=== PATIENT | female | born 1970 | race Caucasian/White ===

== ENCOUNTER 2021-06-17 16:16 | Outpatient (CLI) | payer BC, SELFPAY ==
--- NOTE | 2021-06-17 16:25 | XR_ITS ---
WS: [id number] LUMBAR SPINE: 3 VIEWS TECHNIQUE: AP, lateral and L5-S1 spot. HISTORY: lOW BACK PAIN, RIGHT-SIDED SCIATICA COMPARISON: 05/05/2019 Lumbar vertebra are normally aligned. Minimal narrowing of the disc spaces. Small endplate osteophytes and mild facet joint arthritis at L4 -5 and L5-S1. Pedicles are all identified. SI joints are symmetric bilaterally. No soft tissue abnormalities. Numerous calcifications in the RIGHT upper quadrant secondary to known cholelithiasis. XR/XR lumbar spine 2-3V* [id number] IMPRESSION: 1. Mild lumbar spondylosis. No fracture. 2. Cholelithiasis.
== END 2021-06-17 16:17 | disposition home or self-care (01) ==
PROVIDERS: PCP Family Medicine; Visit Provider Family Medicine
DX: M54.41 Lumbago with sciatica, right side (principal); G89.29 Other chronic pain; K80.20 Calculus of gallbladder without cholecystitis without obstruction; M47.816 Spondylosis without myelopathy or radiculopathy, lumbar region
CPT/HCPCS: 72100

== ENCOUNTER 2021-08-03 16:57 | Inpatient (IN) | payer BC, SELFPAY ==
[2021-08-03 17:06] VITALS: BP 175/75; PULSE 74; RESP 15; TEMP 36.8; O2SAT 99; BMI 38.9
--- NOTE | 2021-08-03 17:26 | W.ED.ABDPA2 ---
Documented by User: Jonathan Villavicencio DO 08/04/21 07:48 HPI - Abdominal Pain General: Chief Complaint: Abdominal Pain Stated Complaint: whole side hurting, hurts to breath, sit down Time Seen by Provider: 08/03/21 17:25 History of Present Illness: HPI narrative: 50 year old female presents to ER with left lower quadrant abdominal pain and progressive worsening over the last 4 days. She has had a large single bloody bowel movement today. She has severe abdominal pain. She has had diverticulitis in the past as well as multiple previous abdominal surgeries. Denies dysuria urgency or frequency. MD elicited complaint: abdominal pain Pertinent past history: diverticulitis Onset (ago): day(s) (10) Pain Consistency: constant Location: LLQ Severity: severe Quality: cramping and stabbing Exacerbating factors: eating and movement Relieving factors: rest Associated Symptoms: Reports bloating, change in bowel habits, change in stool character, chills, GI cramping, diarrhea, hematochezia, loose stools, nausea and poor appetite; Denies anorexia, belching, coffee ground emesis, constipation, dyspepsia, dysuria, excessive flatus, fever(s), heartburn, hematuria, hematemesis, fecal incontinence, melena, syncope and vomiting Review of Systems Const: Reports: chills; Denies: fever(s) ENMT: Denies: throat pain, ear or mastoid pain, nasal discharge or nasal congestion Card: Denies: syncope Resp: Denies: dyspnea, productive cough or non-productive cough GI: Reports: nausea, diarrhea, bloating, GI cramping, change in bowel habits, change in stool character and hematochezia; Denies: vomiting, hematemesis, coffee ground emesis, heartburn, constipation, belching, excessive flatus, fecal incontinence or melena : Denies: dysuria or hematuria Skin/Breast: Denies: rash or pruritus PFSH ED PFSH: Medical History Diverticulitis Diverticulosis Surgical History H/O tubal ligation History of hysterectomy Previous section Social History (Reviewed 08/04/21 @ 07:47 by TAWANDA Zamora Smoking and tobacco status: never smoked Physical Exam Const: COMMON NORMALS: no acute distress GENERAL APPEARANCE: cooperative and comfortable ORIENTATION/CONSCIOUSNESS: Yes awake, Yes oriented to person, Yes oriented to place and Yes oriented to time HENMT: COMMON NORMALS: normocephalic, atraumatic and hearing grossly normal bilaterally HEAD & SCALP: normocephalic and atraumatic Neck/C-Spine: COMMON NORMALS: no JVD Resp: COMMON NORMALS: normal respiratory effort, No retractions, No use of accessory muscles and clear to auscultation bilaterally AUSCULTATION: clear to auscultation bilaterally Cardio: COMMON NORMALS: no JVD, regular rate, regular rhythm and No murmurs present (Cardio) RATE: regular rate RHYTHM: regular rhythm GI: COMMON NORMALS: No hepatosplenomegaly present PALPATION: Yes Tenderness to palpation present (GI) Details: LLQ, Yes Guarding due to palpation present (GI) in the LLQ and Yes No hepatosplenomegaly present Extremity: COMMON NORMALS: normal to inspection, capillary refill normal, no clubbing, cyanosis or edema, no calf tenderness and no pedal edema Neuro: SENSORIUM/ORIENTATION: Yes oriented to person, Yes oriented to place and Yes oriented to time Skin: COMMON NORMALS: no rashes or lesions noted GENERAL SKIN EXAM: no rashes or lesions noted Course Vital Signs: Vital signs: Vital Signs Temperature 97.8 F 08/05/21 16:12 Pulse Rate 51 L 08/05/21 16:12 Respiratory Rate 16 08/05/21 16:12 Blood Pressure 170/82 08/05/21 16:12 Pulse Oximetry 97 08/05/21 16:12 MDM - Abdominal Pain MDM Narrative: Medical decision making narrative: Over to Dr. Roberts changes shift see his notes for final diagnosis and disposition. Labs and imaging are pending. Lab Data: Labs: Lab Results 08/03/21 08/03/21 08/03/21 18:00 18:13 18:13 WBC 12.2 10^3/uL H 10 ^3/uL (4.0-10.0) RBC 4.65 10^6/uL 10^6 /uL (4.1-5.3) Hgb 13.5 g/dL g/dL (11.5-15.3) Hct 42.5 % % (37.0-47.0) MCV 91.4 fl fl (81-99) MCH 29.0 pg pg (28.0-34.0) MCHC 31.8 g/dL g/dL (30.0-36.0) RDW 12.2 % % (12.1-15.1) Plt Count 378 10^3/cmm 10^3 /cmm (130-400) MPV 10.0 fL fL (7.4-10.4) Neut % (Auto) 68.8 % % Lymph % (Auto) 22.0 % % [place] % (Auto) 7.3 % % Eos % (Auto) 1.3 % % Baso % (Auto) 0.3 % % Neut # (Auto) 8.37 10^3/uL H 10 ^3/uL (1.8-7.7) Lymph # (Auto) 2.7 10^3/uL 10^3/ uL (0.8-4.8) [place] # (Auto) 0.9 10^3/uL 10^3/ uL (0.2-0.9) Eos # (Auto) 0.2 10^3/uL 10^3/ uL (0.0-0.8) Baso # (Auto) 0.0 10^3/uL 10^3/ uL (0.0-0.1) Nucleated RBC % (a uto) 0 % % Nucleated RBCs # 0.0 /100WBC /100W BC Sodium 140 mmol/L mmol/L (136-145) Potassium 4.3 mmol/L mmol/L (3.5-5.1) Chloride 101 mmol/L mmol/L (98-107) Carbon Dioxide 24 mmol/L mmol/L (22-29) Anion Gap 19.3 H (5-19) BUN 9 mg/dL mg/dL (6-20) Creatinine 0.5 mg/dL mg/dL (0.5-0.9) GFR Calculation 131.7 mL/min H mL /min (90-130) Glucose 77 mg/dL mg/dL (65-115) Calculated Osmolal ity 287 mOsm/kg mOsm/ kg (285-295) Calcium 10.0 mg/dL mg/dL (8.5-10.5) Iron TIBC % Saturation Unsat Iron Binding Total Bilirubin 0.3 mg/dL mg/dL (0.15-1.2) AST 14 U/L U/L (0-32) ALT 12 U/L U/L (0-33) Alkaline Phosphata se 101 IU/L IU/L (35-105) Total Protein 7.6 g/dL g/dL (6.6-8.7) Albumin 4.1 g/dL g/dL (3.5-5.2) Globulin 3.5 g/dL g/dL (1.3-4.6) Lipase 27 U/L U/L (13-60) TSH Urine Color Straw (Yellow) Urine Appearance Clear (CLEAR) Urine pH 5 (5-7) Ur Specific Gravit y 1.015 (1.005-1.030) Urine Protein Neg (Negative) Urine Glucose (UA) Norm (Normal) Urine Ketones Negative (Negative) Urine Blood Neg (Negative) Urine Nitrate Negative (Negative) Urine Bilirubin Neg (Negative) Urine Urobilinogen Norm mg/dL mg/dL (Negative) Ur Leukocyte Rose ase Negative (Negative) 08/03/21 08/03/21 18:13 18:13 WBC RBC Hgb Hct MCV MCH MCHC RDW Plt Count MPV Neut % (Auto) Lymph % (Auto) [place] % (Auto) Eos % (Auto) Baso % (Auto) Neut # (Auto) Lymph # (Auto) [place] # (Auto) Eos # (Auto) Baso # (Auto) Nucleated RBC % (a uto) Nucleated RBCs # Sodium Potassium Chloride Carbon Dioxide Anion Gap BUN Creatinine GFR Calculation Glucose Calculated Osmolal ity Calcium Iron Cancelled 25 ug/dL L ug/dL (37-145) TIBC Cancelled 329 mcg/dl mcg/dl % Saturation Cancelled 7.5 % L % (20-50) Unsat Iron Binding Cancelled 304 ug/dL ug/dL (112-347) Total Bilirubin AST ALT Alkaline Phosphata se Total Protein Albumin Globulin Lipase TSH 2.47 uIU/mL uIU/m L (0.27-4.20) Urine Color Urine Appearance Urine pH Ur Specific Gravit y Urine Protein Urine Glucose (UA) Urine Ketones Urine Blood Urine Nitrate Urine Bilirubin Urine Urobilinogen Ur Leukocyte Rose ase Discharge Plan Discharge Patient Disposition: Placed in Observation Admit Provider: Karla Smith Clinical Impression: Diverticulitis Discharge Diet: Advance as tolerated, Soft Mechanical and Full LIquid Discharge Activity: Resume usual activity Sign Out Sign Out Data: Patient Sign Out occurred on 08/03/21 at 18:14. Patient's care was discussed, and care was transferred from to Alvaro Reynolds MD. Post-Handoff Eval: See MDM Coding Level of Care Code ED Gyn for Chg Fwd Exam Comprehensive Documented by User: Alvaro Reynolds MD 08/09/21 20:47 HPI - Abdominal Pain General: Chief Complaint: Abdominal Pain Stated Complaint: whole side hurting, hurts to breath, sit down Time Seen by Provider: 08/03/21 17:25 PFSH ED PFSH: Medical History Diverticulitis Diverticulosis Surgical History H/O tubal ligation History of hysterectomy Previous section Social History Smoking and tobacco status: never smoked Course Vital Signs: Vital signs: Vital Signs Temperature 97.8 F 08/05/21 16:12 Pulse Rate 51 L 08/05/21 16:12 Respiratory Rate 16 08/05/21 16:12 Blood Pressure 170/82 08/05/21 16:12 Pulse Oximetry 97 08/05/21 16:12 MDM - Abdominal Pain MDM Narrative: Medical decision making narrative: Patient care handoff received from Dr. Villavicencio pending completion of laboratory evaluation and CT imaging. Laboratory studies notable for leukocytosis, CT images notable for diverticulitis. Patient reports 3-day history of compliance with outpatient antibiotic regimen however continues to worsen with increased pain. Therefore, inpatient observation for IV antibiotics and symptom control reasonable. Case discussed with patient including results of ED evaluation and possible disposition options. Hospitalist service contacted and agreed admit the patient. Alvaro Reynolds MD Emergency Medicine Lab Data: Labs: Lab Results 08/03/21 08/03/21 08/03/21 18:00 18:13 18:13 WBC 12.2 10^3/uL H 10 ^3/uL (4.0-10.0) RBC 4.65 10^6/uL 10^6 /uL (4.1-5.3) Hgb 13.5 g/dL g/dL (11.5-15.3) Hct 42.5 % % (37.0-47.0) MCV 91.4 fl fl (81-99) MCH 29.0 pg pg (28.0-34.0) MCHC 31.8 g/dL g/dL (30.0-36.0) RDW 12.2 % % (12.1-15.1) Plt Count 378 10^3/cmm 10^3 /cmm (130-400) MPV 10.0 fL fL (7.4-10.4) Neut % (Auto) 68.8 % % Lymph % (Auto) 22.0 % % [place] % (Auto) 7.3 % % Eos % (Auto) 1.3 % % Baso % (Auto) 0.3 % % Neut # (Auto) 8.37 10^3/uL H 10 ^3/uL (1.8-7.7) Lymph # (Auto) 2.7 10^3/uL 10^3/ uL (0.8-4.8) [place] # (Auto) 0.9 10^3/uL 10^3/ uL (0.2-0.9) Eos # (Auto) 0.2 10^3/uL 10^3/ uL (0.0-0.8) Baso # (Auto) 0.0 10^3/uL 10^3/ uL (0.0-0.1) Nucleated RBC % (a uto) 0 % % Nucleated RBCs # 0.0 /100WBC /100W BC Sodium 140 mmol/L mmol/L (136-145) Potassium 4.3 mmol/L mmol/L (3.5-5.1) Chloride 101 mmol/L mmol/L (98-107) Carbon Dioxide 24 mmol/L mmol/L (22-29) Anion Gap 19.3 H (5-19) BUN 9 mg/dL mg/dL (6-20) Creatinine 0.5 mg/dL mg/dL (0.5-0.9) GFR Calculation 131.7 mL/min H mL /min (90-130) Glucose 77 mg/dL mg/dL (65-115) Calculated Osmolal ity 287 mOsm/kg mOsm/ kg (285-295) Calcium 10.0 mg/dL mg/dL (8.5-10.5) Iron TIBC % Saturation Unsat Iron Binding Total Bilirubin 0.3 mg/dL mg/dL (0.15-1.2) AST 14 U/L U/L (0-32) ALT 12 U/L U/L (0-33) Alkaline Phosphata se 101 IU/L IU/L (35-105) Total Protein 7.6 g/dL g/dL (6.6-8.7) Albumin 4.1 g/dL g/dL (3.5-5.2) Globulin 3.5 g/dL g/dL (1.3-4.6) Lipase 27 U/L U/L (13-60) TSH Urine Color Straw (Yellow) Urine Appearance Clear (CLEAR) Urine pH 5 (5-7) Ur Specific Gravit y 1.015 (1.005-1.030) Urine Protein Neg (Negative) Urine Glucose (UA) Norm (Normal) Urine Ketones Negative (Negative) Urine Blood Neg (Negative) Urine Nitrate Negative (Negative) Urine Bilirubin Neg (Negative) Urine Urobilinogen Norm mg/dL mg/dL (Negative) Ur Leukocyte Rose ase Negative (Negative) 08/03/21 08/03/21 18:13 18:13 WBC RBC Hgb Hct MCV MCH MCHC RDW Plt Count MPV Neut % (Auto) Lymph % (Auto) [place] % (Auto) Eos % (Auto) Baso % (Auto) Neut # (Auto) Lymph # (Auto) [place] # (Auto) Eos # (Auto) Baso # (Auto) Nucleated RBC % (a uto) Nucleated RBCs # Sodium Potassium Chloride Carbon Dioxide Anion Gap BUN Creatinine GFR Calculation Glucose Calculated Osmolal ity Calcium Iron Cancelled 25 ug/dL L ug/dL (37-145) TIBC Cancelled 329 mcg/dl mcg/dl % Saturation Cancelled 7.5 % L % (20-50) Unsat Iron Binding Cancelled 304 ug/dL ug/dL (112-347) Total Bilirubin AST ALT Alkaline Phosphata se Total Protein Albumin Globulin Lipase TSH 2.47 uIU/mL uIU/m L (0.27-4.20) Urine Color Urine Appearance Urine pH Ur Specific Gravit y Urine Protein Urine Glucose (UA) Urine Ketones Urine Blood Urine Nitrate Urine Bilirubin Urine Urobilinogen Ur Leukocyte Rose ase Discharge Plan Discharge Patient Disposition: Placed in Observation Admit Provider: Karla Smith Clinical Impression: Diverticulitis Discharge Diet: Advance as tolerated, Soft Mechanical and Full LIquid Discharge Activity: Resume usual activity Sign Out Sign Out Data: Patient Sign Out occurred on 08/03/21 at 18:14. Patient's care was discussed, and care was transferred from to Alvaro Reynolds MD. Post-Handoff Eval: See MDM Coding Level of Care Code ED Gyn for Chg Fwd Exam Comprehensive
--- NOTE | 2021-08-03 17:28 | ECG_ITS ---
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 Measurements Intervals [place] Rate: 72 P: 64 [place]: 139 QRS: 60 QRSD: 106 T: 52 QT: 390 QTc: 430 Interpretive Statements SINUS RHYTHM INCOMPLETE RIGHT BUNDLE BRANCH BLOCK [90+ ms QRS DURATION, TERMINAL R IN V1/V2, 40+ ms S IN I/aVL/V4/V5/V6] No previous ECG available for comparison Electronically Signed On 08-04-2021 4:59:54 PRODUCTION MATERIAL COORDINATOR by Sheron Loya M.D. [email or web address]
--- NOTE | 2021-08-03 18:05 | CTR_ITS ---
PROCEDURE INFORMATION: Exam: CT Abdomen And Pelvis With Contrast Exam date and time: 08/03/2021 6:05 PM Age: 50 years old Clinical indication: Abdominal pain; Localized; Left lower quadrant (llq); Prior surgery; Surgery type: Tubal, hyst, ; Additional info: Abd pain TECHNIQUE: Imaging protocol: Computed tomography of the abdomen and pelvis with contrast. Radiation optimization: All CT scans at this facility use at least one of these dose optimization techniques: automated exposure control; mA and/or kV adjustment per patient size (includes targeted exams where dose is matched to clinical indication); or iterative reconstruction. Contrast material: OMNI 300; Contrast volume: 95 ml; Contrast route: INTRAVENOUS (IV); COMPARISON: CT abdomen pelvis w con* [id number] 05/05/2019 7:52 PM RADIATION DOSE METRICS: Total DLP (mGy-cm): 1817.74 FINDINGS: Liver: Hepatic steatosis. Gallbladder and bile ducts: Cholelithiasis. Pancreas: Normal. No ductal dilation. Spleen: Normal. No splenomegaly. Adrenal glands: Normal. No mass. Kidneys and ureters: Normal. No hydronephrosis. Stomach and bowel: Distal descending colon wall thickening with surrounding edema about a diverticula consistent with diverticulitis. Appendix: No evidence of appendicitis. Intraperitoneal space: Unremarkable. No free air. No significant fluid collection. Vasculature: Unremarkable. No abdominal aortic aneurysm. Lymph nodes: Unremarkable. No enlarged lymph nodes. Urinary bladder: Unremarkable as visualized. Reproductive: Unremarkable as visualized. Bones/joints: Unremarkable. No acute fracture. Soft tissues: Unremarkable. CT/CT abdomen pelvis w con* [id number] IMPRESSION: 1. Distal descending colon diverticulitis, negative for abscess. 2. Hepatic steatosis. 3. Cholelithiasis.
[2021-08-03] MEDS: sodium chloride 0.9% 1,000 ML 999 ML IV (18:15)
[2021-08-03] MEDS: ondansetron 2 mg/ML SDV 2 mL 4 MG IVP (18:15)
[2021-08-03 18:16] VITALS: RESP 16
[2021-08-03] MEDS: morphine 4 mg/mL SDV 1 mL 6 MG IVP (18:16)
--- NOTE | 2021-08-03 18:19 | PC.NURSE ---
PT PLACED ON CONTINUOUS SPO2, NIBP, AND CM.
[2021-08-03 18:22] VITALS: BP 212/97; PULSE 69; RESP 21; O2SAT 100
[2021-08-03 18:27] LABS: Add Urine Microscopic? NO; Charge for UA Resulting for Rev
[2021-08-03 18:28] LABS: Basophils % 0.3 %; Eosinophils # 0.2 10^3/uL (0.0-0.8); Eosinophils % 1.3 %; Hematocrit 42.5 % (37.0-47.0); Hemoglobin 13.5 g/dL (11.5-15.3); Lymphocytes # 2.7 10^3/uL (0.8-4.8); Mean Corpuscular HGB Conc 31.8 g/dL (30.0-36.0); Mean Corpuscular Volume 91.4 fl (81-99); Monocytes # 0.9 10^3/uL (0.2-0.9); Monocytes % 7.3 %; Neutrophils # 8.37 10^3/uL (1.8-7.7); Neutrophils % 68.8 %; Nucleated Red Blood Cells % 0 %; Platelet Count 378 10^3/cmm (130-400); Red Blood Count 4.65 10^6/uL (4.1-5.3); Red Cell Distribution Width 12.2 % (12.1-15.1); White Blood Count 12.2 10^3/uL (4.0-10.0)
[2021-08-03 18:36] LABS: Bilirubin Urine Neg (Negative); Blood Urine Neg (Negative); Glucose Urine UA Norm (Normal); Ketones Urine Negative (Negative); Leukocyte Esterase Urine Negative (Negative); Nitrate Urine Negative (Negative); Protein Urine Neg (Negative); Specific Gravity, Urine 1.015 (1.005-1.030); Urine Appearance Clear (CLEAR); Urine Color Straw (Yellow); Urobilinogen Urine Norm (Negative); pH Urine 5 (5-7)
[2021-08-03] MEDS: iohexol 300 mg/mL 100 mL Btl IV (18:36)
[2021-08-03 18:53] LABS: Alanine Aminotransferase 12 U/L (0-33); Albumin Level 4.1 g/dL (3.5-5.2); Alkaline Phosphatase 101 IU/L (35-105); Aspartate Amino Transferase 14 U/L (0-32); Blood Urea Nitrogen 9 mg/dL (6-20); Carbon Dioxide 24 mmol/L (22-29); Chloride 101 mmol/L (98-107); Globulin 3.5 g/dL (1.3-4.6); Glomerular Filtration Rate 131.7 mL/min (90-130); Glucose 77 mg/dL (65-115); Lipase 27 U/L (13-60); Osmolality Calculated 287 mOsm/kg (285-295); Sodium 140 mmol/L (136-145); Total Bilirubin 0.3 mg/dL (0.15-1.2); Total Protein 7.6 g/dL (6.6-8.7)
[2021-08-03 18:55] LABS: Anion Gap 19.3 (5-19); Potassium 4.3 mmol/L (3.5-5.1)
--- NOTE | 2021-08-03 19:08 | PC.NURSE ---
report given to cristóbal larkin assumed care.
[2021-08-03] MEDS: ciprofloxacin 400 MG/200 ML PREMIX 200 MG IV (19:31)
[2021-08-03] MEDS: metroNIDAZOLE IV 500 MG/100 ML PREMIX 100 MG IV (20:35)
[2021-08-03 21:57] VITALS: BMI 38.6
[2021-08-03 22:16] VITALS: BP 157/79; PULSE 70; RESP 16; TEMP 36.8; O2SAT 97
--- NOTE | 2021-08-03 22:57 | PM.HP ---
Providers/Chief Complaint Admitting Physician: Karla Smith MD Primary Care Provider: Monica Belle DO Chief Complaint: whole side hurting, hurts to breath, sit down History of Present Illness Nita Lee is a 50 year old female presenting to the ER today with c.o lower abdominal pain, described as cramping to dull aching that was first noticed ~7-10 days ago. Reports pain mainly being in the LLQ, worsened with eating. Also with intermittent diarrhea and hematochezia, denies richardson cata. Poor po intake+. She was prescribed po Augmentin as outpatient which she has been taking without significant change in her symptoms. On CT scan today, noted to have diverticulitis. Review of Systems General: Reports: 10 or more systems reviewed and unremarkable except in HPI and below Const: Reports: chills; Denies: fever(s) or body aches Eyes: Denies: change in vision, blurry vision or photophobia ENMT: Reports: hoarseness; Denies: throat pain, enlarged tonsils, odynophagia or nasal congestion Card: Denies: chest pain, palpitations, irregular heart rhythm, edema, swelling of feet/ankles, lightheadedness, pre-syncope, dyspnea on exertion or orthopnea Resp: Denies: dyspnea, productive cough, non-productive cough, wheezing, stridor, pain on inspiration, change in phlegm color, hemoptysis or chest congestion GI: Reports: abdominal pain and nausea; Denies: vomiting, hematemesis, coffee ground emesis, dysphagia, heartburn, diarrhea, constipation, GI cramping, hematochezia or melena : Denies: flank pain, difficulty voiding, dysuria, urinary frequency, urinary urgency, urinary hesitancy or hematuria Musc: Denies: neck pain, back pain, extremity pain, joint swelling, joint warmth or deformity Neuro: Denies: headache(s), numbness in extremities, weakness in extremities, sensory changes, difficulty walking, frequent falls, dizziness, vertigo, behavioral changes, Slurred speech present or seizure-like activity Psych: Denies: anxiety, depression, suicidal ideation or homicidal ideation Endo: Denies: polyuria, polydipsia, tired all the time, cold intolerance or hot flashes Kevin/Lymph: Denies: easy bruising or easy bleeding Medications/Allergies Home Medications Medication Instructions Recorded Confirmed Last Taken Type No Known Home Medications 05/22/21 05/22/21 Unknown History Allergies Allergy/AdvReac Type Severity Reaction Status Date / Time No Known Allergies Allergy Verified 05/22/21 10:28 PFSH Acute PFSH: Medical History Diverticulitis Diverticulosis Surgical History H/O tubal ligation History of hysterectomy Previous section Social History Smoking and tobacco status: never smoked Vitals/I&O/Wt Last Vital Signs Temp 98.3 F 08/03/21 22:16 Pulse 70 08/03/21 22:16 Resp 16 08/03/21 22:16 BP 157/79 08/03/21 22:16 Pulse Ox 97 08/03/21 22:16 08/03/21 08/03/21 08/03/21 06:59 14:59 22:59 Intake Total 1300 / 1300 Balance 1300 / 1300 Weight last 48 hrs Weight 98.883 kg Weight 99.79 kg Physical Exam Narrative: EXAM NARRATIVE: General: No acute distress, AO x3 HEENT: PERRLA, pupils bilaterally equal and reactive, pallors not present Chest: Normal vesicular breath sounds, no added sounds, equal good air entry bilaterally CVS: S1-S2 regular, no murmurs, no tachycardia, no gallops, no rubs Abdomen: Soft, discomfort to palpation lower abdomen, no organomegaly, bowel sounds present Neuro: No focal deficits, no facial deformity, AO x3, power 5/5 in all limbs Data : 08/03/21 18:13 08/03/21 18:13 Other Labs: Radiology Impressions Abdomen/Pelvis CT 08/03/21 18:05 IMPRESSION: 1. Distal descending colon diverticulitis, negative for abscess. 2. Hepatic steatosis. 3. Cholelithiasis. Laboratory Results WBC 12.2 10^3/uL (4.0-10.0) H 08/03/21 18:13 RBC 4.65 10^6/uL (4.1-5.3) 08/03/21 18:13 Hgb 13.5 g/dL (11.5-15.3) 08/03/21 18:13 Hct 42.5 % (37.0-47.0) 08/03/21 18:13 MCV 91.4 fl (81-99) 08/03/21 18:13 MCH 29.0 pg (28.0-34.0) 08/03/21 18:13 MCHC 31.8 g/dL (30.0-36.0) 08/03/21 18:13 RDW 12.2 % (12.1-15.1) 08/03/21 18:13 Plt Count 378 10^3/cmm (130-400) 08/03/21 18:13 MPV 10.0 fL (7.4-10.4) 08/03/21 18:13 Neut % (Auto) 68.8 % 08/03/21 18:13 Lymph % (Auto) 22.0 % 08/03/21 18:13 [place] % (Auto) 7.3 % 08/03/21 18:13 Eos % (Auto) 1.3 % 08/03/21 18:13 Baso % (Auto) 0.3 % 08/03/21 18:13 Neut # (Auto) 8.37 10^3/uL (1.8-7.7) H 08/03/21 18:13 Lymph # (Auto) 2.7 10^3/uL (0.8-4.8) 08/03/21 18:13 [place] # (Auto) 0.9 10^3/uL (0.2-0.9) 08/03/21 18:13 Eos # (Auto) 0.2 10^3/uL (0.0-0.8) 08/03/21 18:13 Baso # (Auto) 0.0 10^3/uL (0.0-0.1) 08/03/21 18:13 Nucleated RBC % (auto) 0 % 08/03/21 18: Nucleated RBCs # 0.0 /100WBC 08/03/21 18:13 Sodium 140 mmol/L (136-145) 08/03/21 18:13 Potassium 4.3 mmol/L (3.5-5.1) 08/03/21 18:13 Chloride 101 mmol/L (98-107) 08/03/21 18:13 Carbon Dioxide 24 mmol/L (22-29) 08/03/21 18:13 Anion Gap 19.3 (5-19) H 08/03/21 18:13 BUN 9 mg/dL (6-20) 08/03/21 18:13 Creatinine 0.5 mg/dL (0.5-0.9) 08/03/21 18:13 GFR Calculation 131.7 mL/min (90-130) H 08/03/21 18:13 Glucose 77 mg/dL (65-115) 08/03/21 18:13 Calculated Osmolality 287 mOsm/kg (285-295) 08/03/21 18:13 Calcium 10.0 mg/dL (8.5-10.5) 08/03/21 18:13 Total Bilirubin 0.3 mg/dL (0.15-1.2) 08/03/21 18:13 AST 14 U/L (0-32) 08/03/21 18:13 ALT 12 U/L (0-33) 08/03/21 18:13 Alkaline Phosphatase 101 IU/L (35-105) 08/03/21 18:13 Total Protein 7.6 g/dL (6.6-8.7) 08/03/21 18:13 Albumin 4.1 g/dL (3.5-5.2) 08/03/21 18:13 Globulin 3.5 g/dL (1.3-4.6) 08/03/21 18:13 Lipase 27 U/L (13-60) 08/03/21 18:13 Urine Color Straw (Yellow) 08/03/21 18:00 Urine Appearance Clear (CLEAR) 08/03/21 18:00 Urine pH 5 (5-7) 08/03/21 18:00 Ur Specific [place] 1.015 (1.005-1.030) 08/03/21 18:00 Urine Protein Neg (Negative) 08/03/21 18:00 Urine Glucose (UA) Norm (Normal) 08/03/21 18:00 Urine Ketones Negative (Negative) 08/03/21 18:00 Urine Blood Neg (Negative) 08/03/21 18:00 Urine Nitrate Negative (Negative) 08/03/21 18: Urine Bilirubin Neg (Negative) 08/03/21 18:00 Urine Urobilinogen Norm mg/dL (Negative) 08/03/21 18:00 Ur Leukocyte Esterase Negative (Negative) 08/03/21 18:00 A&P Assessment and plan (1) Diverticulitis: Status: Acute Additional A&P Information Admit to med/surg in view of acute diverticulitis with hematochezia with failure of outpatient antibiotic treatment , poor po intake Start empiric iv piperacillin, tazobactam NPO for bowel rest IVF D5NS @ 75cc/hr stool for occult blood currently hemodynamically stable, Hb 13.5 Incidentally noted to have BP 212/97 upon admission, trended down to 150/79 without directed treatment, will monitor for now without addition of new medications. Attestations Medical Necessity Statement*: anticipate >2idnight admission for management of acute diverticulitis, having failed outpatient rx, need for iv abx and iv hydration Coding Level of Care Code Acute Fundraising Consultant for Leif Alva Diagnoses Diverticulitis K57.92
[2021-08-03] MEDS: ketorolac 30 mg/mL INJ 15 MG IVP (23:32)
[2021-08-03] MEDS: enoxaparin 40 mg/0.4 mL Syringe SUBCUT (23:32)
[2021-08-03] MEDS: dextrose 5%-sod chloride 0.9% 1,000 ML 75 ML IV (23:33)
[2021-08-03] MEDS: famotidine 20 mg/2 mL INJ IVP (23:33)
[2021-08-04] VITALS (7 sets, daily range): BP systolic 100–161; BP diastolic 52–87; PULSE 61–80; RESP 16–18; TEMP 36.6–36.9; O2SAT 93–98
[2021-08-04] MEDS: ketorolac 30 mg/mL INJ 15 MG IVP (07:55)
[2021-08-04] MEDS: piperacillin-tazobactam 3.375 GM in sodium chloride 0.9% (plus) 50 ML IV ×3 (07:55→23:26)
[2021-08-04] MEDS: famotidine 20 mg/2 mL INJ IVP ×2 (10:08→23:25)
[2021-08-04] MEDS: dextrose 5%-sod chloride 0.9% 1,000 ML 75 ML IV (11:31)
--- NOTE | 2021-08-04 14:59 | P.PN_ITS ---
Subjective Subjective: Interval history: Admitted overnight for diverticulitis. On examination today laying comfortably in bed. Family at bedside. Denies any nausea vomiting, headache. Has remained afebrile. Vitals/I&O/Wt Last Vital Signs Temp 97.9 F 08/04/21 11:35 Pulse 65 08/04/21 11:35 Resp 18 08/04/21 11:35 BP 115/67 08/04/21 11:35 Pulse Ox 95 08/04/21 11:35 08/03/21 08/04/21 08/04/21 22:59 06:59 14:59 Intake Total 1300 / 1300 0 / 1300 897.5 / 897.5 Output Total 100 / 100 Balance 1300 / 1300 0 / 1300 797.5 / 797.5 Weight last 48 hrs Weight 98.883 kg Weight 99.79 kg Physical Exam Narrative: EXAM NARRATIVE: General: No acute distress, AO x3 HEENT: PERRLA, pupils bilaterally equal and reactive, pallors not present Chest: Normal vesicular breath sounds, no added sounds, equal good air entry bilaterally CVS: S1-S2 regular, no murmurs, no tachycardia, no gallops, no rubs Abdomen: Soft, discomfort to palpation lower abdomen, no organomegaly, bowel sounds present Neuro: No focal deficits, no facial deformity, AO x3, power 5/5 in all limbs Data : 08/03/21 18:13 08/03/21 18:13 A&P Assessment and plan (1) Diverticulitis: Check stool studies to rule out C. difficile or infectious cause. Continue with empiric Zosyn for now. NPO. Will advance gradually to clear liquid diet for the next 24 hours. Continue with D5 NS at 75 cc/h. Status: Acute Additional A&P Information High blood pressure: No documented history of hypertension. Goal blood pressure less than 140/90 mmHg. We will continue to monitor and if needed will start on antihypertensives. Check HbA1c, lipid panel, TSH, iron panel. Full code. Lovenox for DVT prophylaxis. Famotidine for daily prophylaxis. Attestations Medical Necessity Statement*: Requires further hospitalization for diverticulitis, poor oral intake, failure of outpatient therapy. Time Spent in Patient Care: Greater than 35 minutes (>than 50% of time spent in counselling and/or direct pt care on unit) . Coding Level of Care Code Acute Care Transition Manager for Chg Fwd Diagnoses Diverticulitis K57.92
[2021-08-04] MEDS: morphine 4 mg/mL SDV 1 mL 2 MG IVP (15:12)
[2021-08-04 15:27] LABS: Iron 25 ug/dL (37-145); Percent Saturation 7.5 % (20-50); Thyroid Stimulating Hormone 2.47 uIU/mL (0.27-4.20); Total Iron Binding Capacity 329 mcg/dl; Unsaturated Iron Binding 304 ug/dL (112-347)
--- NOTE | 2021-08-04 17:08 | PC.NURSE ---
Patient asking when she will see the Doctor today. Dr Bae notified.
[2021-08-05] VITALS: BP 140/80; PULSE 60; RESP 18; TEMP 36.7; O2SAT 93
[2021-08-05] MEDS: dextrose 5%-sod chloride 0.9% 1,000 ML 75 ML IV (00:17)
[2021-08-05] MEDS: ketorolac 30 mg/mL INJ 15 MG IVP (00:25)
[2021-08-05] MEDS: acetaminophen 325 mg Tablet 650 MG PO (00:25)
[2021-08-05 05:51] LABS: Basophils % 0.4 %; Eosinophils # 0.2 10^3/uL (0.0-0.8); Eosinophils % 2.4 %; Hematocrit 32.8 % (37.0-47.0); Hemoglobin 10.3 g/dL (11.5-15.3); Lymphocytes # 3.2 10^3/uL (0.8-4.8); Lymphocytes % 42.9 %; Mean Corpuscular HGB Conc 31.4 g/dL (30.0-36.0); Mean Corpuscular Hemoglobin 29.2 pg (28.0-34.0); Mean Corpuscular Volume 92.9 fl (81-99); Mean Platelet Volume 9.5 fL (7.4-10.4); Monocytes # 0.5 10^3/uL (0.2-0.9); Monocytes % 6.6 %; Neutrophils # 3.51 10^3/uL (1.8-7.7); Neutrophils % 47.6 %; Nucleated Red Blood Cells % 0 %; Platelet Count 305 10^3/cmm (130-400); Red Blood Count 3.53 10^6/uL (4.1-5.3); Red Cell Distribution Width 12.1 % (12.1-15.1); White Blood Count 7.4 10^3/uL (4.0-10.0)
[2021-08-05 06:05] LABS: Estmated Average Glucose 97
[2021-08-05 06:08] LABS: Alanine Aminotransferase 11 U/L (0-33); Albumin Level 3.2 g/dL (3.5-5.2); Alkaline Phosphatase 75 IU/L (35-105); Aspartate Amino Transferase 10 U/L (0-32); Blood Urea Nitrogen 6 mg/dL (6-20); Carbon Dioxide 25 mmol/L (22-29); Chloride 106 mmol/L (98-107); Globulin 2.5 g/dL (1.3-4.6); Glomerular Filtration Rate 131.7 mL/min (90-130); Glucose 100 mg/dL (65-115); Osmolality Calculated 290 mOsm/kg (285-295); Sodium 141 mmol/L (136-145); Total Bilirubin 0.2 mg/dL (0.15-1.2); Total Protein 5.7 g/dL (6.6-8.7)
[2021-08-05 06:18] LABS: Chol HDL Ratio 3.97 mg/dL (0.0-4.40); Cholesterol 151 mg/dL (0-200); HDL Cholesterol 38 mg/dL (60-100); LDL Cholesterol Calculated 98 mg/dL (50-129); Triglycerides 77 mg/dL (0-150); VLDL Cholestrol Calculation 15 mg/dL (0-30)
--- NOTE | 2021-08-05 07:22 | PC.NURSE ---
Lab called and said we still need to collect a stool sample. Care nurse Emily notified.
[2021-08-05 08:00] VITALS: BP 145/79; PULSE 65; RESP 17; TEMP 36.4; O2SAT 97
[2021-08-05] MEDS: piperacillin-tazobactam 3.375 GM in sodium chloride 0.9% (plus) 50 ML IV (08:54)
--- NOTE | 2021-08-05 10:43 | PC.NURSE ---
Notified by Dr. Man patient is leaving AMA. Patient signed AMA paperwork. This nurse tried to talk him into staying.
[2021-08-05 12:00] VITALS: BP 170/82; PULSE 51; RESP 16; TEMP 36.6; O2SAT 97
[2021-08-05] MEDS: famotidine 20 mg/2 mL INJ IVP (12:35)
--- NOTE | 2021-08-05 13:02 | PM.DCS ---
Discharge Providers Date of Admission: 08/03/21 22:53 Date of Discharge: August 05, 2021 Attending Provider at Admission: Karla Smith MD Attending Provider at Discharge: Brenton Bae MD Primary Care Provider: Monica Belle DO Diagnoses at Discharge Discharge Diagnosis (1) Diverticulitis: Status: Acute Reason for Visit Reason for Visit: whole side hurting, hurts to breath, sit down Hospital Course Hospital Course History as per H&P: Nita Lee is a 50 year old female presenting to the ER today with c.o lower abdominal pain, described as cramping to dull aching that was first noticed ~7-10 days ago. Reports pain mainly being in the LLQ, worsened with eating. Also with intermittent diarrhea and hematochezia, denies richardson cata. Poor po intake+. She was prescribed po Augmentin as outpatient which she has been taking without significant change in her symptoms. On CT scan today, noted to have diverticulitis. Hospital course: Patient was admitted for further evaluation management of diverticulitis with failure of outpatient treatment because of poor oral intake. She was treated conservatively with IV fluids and broad-spectrum IV antibiotics and diet was advanced gradually. Patient tolerated diet well. Did not have any further in the diarrheal bowel movements. Did not have any nausea or vomiting but continued to have on and off abdominal pain. Patient was advised to follow-up with surgery in 2 weeks for colonoscopy. She is advised to take Augmentin and Levaquin for next 5 days. She is advised to take stool softeners daily for the next few days until she has 2-3 soft bowel movements. During hospitalization patient hemoglobin remained stable. All the plan was discussed in detail with the patient and she verbalized understanding. She is advised to take full liquid diet for the next few days and advance her diet to soft/brat diet including bananas, applesauce, toast, mashed potatoes, broth. She is advised to take multiple small meals. Physical Exam Narrative: EXAM NARRATIVE: General: No acute distress, AO x3 HEENT: PERRLA, pupils bilaterally equal and reactive, pallors not present Chest: Normal vesicular breath sounds, no added sounds, equal good air entry bilaterally CVS: S1-S2 regular, no murmurs, no tachycardia, no gallops, no rubs Abdomen: Soft, discomfort to palpation lower abdomen, no organomegaly, bowel sounds present Neuro: No focal deficits, no facial deformity, AO x3, power 5/5 in all limbs Discharge Data Data Completed and Pending: Completed Studies During Hospitalization Category Date Time Status CT abdomen pelvis w con* [id number] Stat Cat Scan 08/03/21 18:05 Completed Pending at discharge Category Date Time Status Clostridioides Di fficile PCR Routin e Lab 08/04/21 09:59 Ordered Enteric Bacterial Panel by PCR Rout ine Lab 08/04/21 09:59 Ordered Enteric Parasite Panel by PCR Routi ne Lab 08/04/21 09:59 Ordered Immunochemical Fe dragan OCB Routine Lab 08/04/21 05:50 Uncollected Labs from last 24 hours 08/05/21 08/05/21 08/05/21 05:16 05:16 05:16 WBC 7.4 RBC 3.53 L Hgb 10.3 L Hct 32.8 L MCV 92.9 MCH 29.2 MCHC 31.4 RDW 12.1 Plt Count 305 MPV 9.5 Neut % (Auto) 47.6 Lymph % (Auto) 42.9 [place] % (Auto) 6.6 Eos % (Auto) 2.4 Baso % (Auto) 0.4 Neut # (Auto) 3.51 Lymph # (Auto) 3.2 [place] # (Auto) 0.5 Eos # (Auto) 0.2 Baso # (Auto) 0.0 Nucleated RBC % (a uto) 0 Nucleated RBCs # 0.0 Sodium 141 Potassium 4.0 Chloride 106 Carbon Dioxide 25 Anion Gap 14.0 BUN 6 Creatinine 0.5 GFR Calculation 131.7 H Glucose 100 Estimat Average Gl ucose Hemoglobin A1c Calculated Osmolal ity 290 Calcium 8.0 L Iron TIBC % Saturation Unsat Iron Binding Total Bilirubin 0.2 AST 10 ALT 11 Alkaline Phosphata se 75 Total Protein 5.7 L Albumin 3.2 L Globulin 2.5 Triglycerides 77 Cholesterol 151 LDL Cholesterol, C alc 98 Total VLDL Cholest leida 15 HDL Cholesterol 38 L Cholesterol/HDL Ra edgar 3.97 TSH 08/05/21 08/03/21 08/03/21 05:16 18:13 18:13 WBC RBC Hgb Hct MCV MCH MCHC RDW Plt Count MPV Neut % (Auto) Lymph % (Auto) [place] % (Auto) Eos % (Auto) Baso % (Auto) Neut # (Auto) Lymph # (Auto) [place] # (Auto) Eos # (Auto) Baso # (Auto) Nucleated RBC % (a uto) Nucleated RBCs # Sodium Potassium Chloride Carbon Dioxide Anion Gap BUN Creatinine GFR Calculation Glucose Estimat Average Gl ucose 97 Hemoglobin A1c 5.0 Calculated Osmolal ity Calcium Iron 25 L Cancelled TIBC 329 Cancelled % Saturation 7.5 L Cancelled Unsat Iron Binding 304 Cancelled Total Bilirubin AST ALT Alkaline Phosphata se Total Protein Albumin Globulin Triglycerides Cholesterol LDL Cholesterol, C alc Total VLDL Cholest leida HDL Cholesterol Cholesterol/HDL Ra edgar TSH 2.47 Addt'l Data from Hospital Stay: Radiology Impressions Abdomen/Pelvis CT 08/03/21 18:05 IMPRESSION: 1. Distal descending colon diverticulitis, negative for abscess. 2. Hepatic steatosis. 3. Cholelithiasis. Laboratory Results WBC 7.4 10^3/uL (4.0- 10.0) 08/05/21 05:16 RBC 3.53 10^6/uL (4.1 -5.3) L 08/05/21 05:16 Hgb 10.3 g/dL (11.5-1 5.3) L 08/05/21 05:16 Hct 32.8 % (37.0-47.0 ) L 08/05/21 05:16 MCV 92.9 fl (81-99) 08/05/21 05:16 MCH 29.2 pg (28.0-34. 0) 08/05/21 05:16 MCHC 31.4 g/dL (30.0-3 6.0) 08/05/21 05:16 RDW 12.1 % (12.1-15.1 ) 08/05/21 05:16 Plt Count 305 10^3/cmm (130 -400) 08/05/21 05:16 MPV 9.5 fL (7.4-10.4) 08/05/21 05:16 Neut % (Auto) 47.6 % 08/05/21 05:16 Lymph % (Auto) 42.9 % 08/05/21 05:16 [place] % (Auto) 6.6 % 08/05/21 05:16 Eos % (Auto) 2.4 % 08/05/21 05:16 Baso % (Auto) 0.4 % 08/05/21 05:16 Neut # (Auto) 3.51 10^3/uL (1.8 -7.7) 08/05/21 05:16 Lymph # (Auto) 3.2 10^3/uL (0.8- 4.8) 08/05/21 05:16 [place] # (Auto) 0.5 10^3/uL (0.2- 0.9) 08/05/21 05:16 Eos # (Auto) 0.2 10^3/uL (0.0- 0.8) 08/05/21 05:16 Baso # (Auto) 0.0 10^3/uL (0.0- 0.1) 08/05/21 05:16 Nucleated RBC % (a uto) 0 % 08/05/21 05:16 Nucleated RBCs # 0.0 /100WBC 08/05/21 05:16 Sodium 141 mmol/L (136-1 45) 08/05/21 05:16 Potassium 4.0 mmol/L (3.5-5 .1) 08/05/21 05:16 Chloride 106 mmol/L (98-10 7) 08/05/21 05:16 Carbon Dioxide 25 mmol/L (22-29) 08/05/21 05:16 Anion Gap 14.0 (5-19) 08/05/21 05:16 BUN 6 mg/dL (6-20) 08/05/21 05:16 Creatinine 0.5 mg/dL (0.5-0. 9) 08/05/21 05:16 GFR Calculation 131.7 mL/min (90- 130) H 08/05/21 05:16 Glucose 100 mg/dL (65-115 ) 08/05/21 05:16 Estimat Average Gl ucose 97 08/05/21 05:16 Hemoglobin A1c 5.0 % (4.0-6.0) 08/05/21 05:16 Calculated Osmolal ity 290 mOsm/kg (285- 295) 08/05/21 05:16 Calcium 8.0 mg/dL (8.5-10 .5) L 08/05/21 05:16 Iron 25 ug/dL (37-145) L 08/03/21 18:13 Iron Cancelled 08/03/21 18:13 TIBC 329 mcg/dl 08/03/21 18:13 TIBC Cancelled 08/03/21 18:13 % Saturation 7.5 % (20-50) L 08/03/21 18:13 % Saturation Cancelled 08/03/21 18:13 Unsat Iron Binding 304 ug/dL (112-34 7) 08/03/21 18:13 Unsat Iron Binding Cancelled 08/03/21 18:13 Total Bilirubin 0.2 mg/dL (0.15-1 .2) 08/05/21 05:16 AST 10 U/L (0-32) 08/05/21 05:16 ALT 11 U/L (0-33) 08/05/21 05:16 Alkaline Phosphata se 75 IU/L (35-105) 08/05/21 05:16 Total Protein 5.7 g/dL (6.6-8.7 ) L 08/05/21 05:16 Albumin 3.2 g/dL (3.5-5.2 ) L 08/05/21 05:16 Globulin 2.5 g/dL (1.3-4.6 ) 08/05/21 05:16 Triglycerides 77 mg/dL (0-150) 08/05/21 05:16 Cholesterol 151 mg/dL (0-200) 08/05/21 05:16 LDL Cholesterol, C alc 98 mg/dL (50-129) 08/05/21 05:16 Total VLDL Cholest leida 15 mg/dL (0-30) 08/05/21 05:16 HDL Cholesterol 38 mg/dL (60-100) L 08/05/21 05:16 Cholesterol/HDL Ra edgar 3.97 mg/dL (0.0-4 .40) 08/05/21 05:16 Lipase 27 U/L (13-60) 08/03/21 18:13 TSH 2.47 uIU/mL (0.27 -4.20) 08/03/21 18:13 Urine Color Straw (Yellow) 08/03/21 18:00 Urine Appearance Clear (CLEAR) 08/03/21 18:00 Urine pH 5 (5-7) 08/03/21 18:00 Ur Specific Gravit y 1.015 (1.005-1.0 30) 08/03/21 18:00 Urine Protein Neg (Negative) 08/03/21 18:00 Urine Glucose (UA) Norm (Normal) 08/03/21 18:00 Urine Ketones Negative (Negati ve) 08/03/21 18:00 Urine Blood Neg (Negative) 08/03/21 18:00 Urine Nitrate Negative (Negati ve) 08/03/21 18:00 Urine Bilirubin Neg (Negative) 08/03/21 18:00 Urine Urobilinogen Norm mg/dL (Negat michelle) 08/03/21 18:00 Ur Leukocyte Rose ase Negative (Negati ve) 08/03/21 18:00 Vitals: Last Vital Signs Temp 97.6 F 08/05/21 08:00 Pulse 65 08/05/21 08:00 Resp 17 08/05/21 08:00 BP 145/79 08/05/21 08:00 Pulse Ox 97 08/05/21 08:00 Discharge Plan Discharge Patient Disposition: Home Condition: Stable Prescriptions: New levofloxacin 500 mg tablet 500 mg PO Q24H 5 Days Qty: 5 RF: 0 Pepcid 20 mg tablet 20 mg PO BID Qty: 30 RF: 0 tramadol 50 mg tablet 50 mg PO Q8H PRN (Reason: pain) Qty: 20 RF: 0 docusate sodium 250 mg capsule 250 mg PO BID PRN (Reason: constipation) Qty: 14 RF: 0 Continued Advil 200 mg Tablet 200 mg PO Q4H PRN (Reason: Pain) RF: 0 gabapentin 100 mg capsule 100 mg PO BEDTIME RF: 0 amoxicillin-pot clavulanate 500-125 mg tablet 1 tab PO TID RF: 0 Discharge Orders: Discharge Order (Routine); Ordered 08/05/21 Ordered By: Brenton Bae Referrals: Josemanuel Brown MD [Physician] - 2 weeks (Colonoscopy, ongoing diverticulitis) Monica Belle DO [Primary Care Provider] - 2 weeks Discharge Diet: Advance as tolerated, Soft Mechanical and Full LIquid Discharge Activity: Resume usual activity Patient Instructions: Opioid Safety Activity Restrictions/Additional Instructions: Continue taking full liquid diet for next few days and advance gradually to brat/soft diet. Soft diet should contain bananas, applesauce, toast, mashed potatoes, broth. Please take antibiotics for the next 5 days including Augmentin and Levaquin. Tramadol for pain as needed every 8 hours. For now take stool softeners daily. Have at least 1 or 2 soft bowel movements daily. Please follow-up with Dr. Brown within the next 2 weeks from surgery for colonoscopy for further evaluation of diverticulitis. Discharge Attestations Time Spent in Discharge Care*: greater than 30 min Specific Discharge Activities: educating patient, educating and/or supporting family/caregiver, discussing with bilingual case manager/social workers/dc planners, documenting/other paperwork and evaluating patient/reviewing data Status at Discharge: Cognitive status at discharge: cognitively intact, Behavioral status at discharge: cooperative, Functional status at discharge: independent ambulation Overall status at discharge: patient is not back to baseline Quality Metrics Clinical Quality Measures During this hospital stay, did patient experience: None Coding Level of Care Code Acute Chg RAMIRO note Diagnoses Diverticulitis K57.92
--- NOTE | 2021-08-05 15:28 | PC.NURSE ---
Discharge instructions gone over with patient. Follow up appointments and note to return to work on 08-10-2021 was signed.
[2021-08-05 16:12] VITALS: BP 170/82; PULSE 51; RESP 16; TEMP 36.6; O2SAT 97
== END 2021-08-05 16:13 | disposition home or self-care (01) | DRG 392 ==
LOC: ER 20:40 → MEDSURG 08-04 05:32
PROVIDERS: Family Medicine; Admitting Provider Student in an Organized Health Care Education/Training Program; Emergency Provider Emergency Medicine; PCP Family Medicine; Visit Provider Student in an Organized Health Care Education/Training Program
DX: K57.32 Diverticulitis of large intestine without perforation or abscess without bleeding (principal)
CPT/HCPCS: 36415; 74177; 80053; 80061; 81003; 83036; 83540; 83550; 83690; 84443; 85025; 93005; 96365; 96367; 96372; 96375; 99285; J0744; J1650; J1885; J2270; J2405; J2543; J3490; J7030; Q9967; S0030

== ENCOUNTER → 2021-09-14 08:39 | Outpatient (BNVA) | payer BC, SELFPAY | PROVIDERS: PCP Family Medicine; Visit Provider Surgery | DX: Z20.822 Contact with and (suspected) exposure to COVID-19 (principal) | CPT/HCPCS: 87635 ==

== ENCOUNTER 2021-09-18 05:42 | Day surgery (SDC) | payer BC, SELFPAY ==
[2021-09-16 13:06] VITALS: BMI 38.9
[2021-09-18 06:11] VITALS: BP 142/73; PULSE 71; RESP 18; TEMP 36.1; O2SAT 97
[2021-09-18] MEDS: sodium chloride 0.9% 1,000 ML 30 ML IV (06:15)
--- NOTE | 2021-09-18 06:42 | ANES.PREANE2 ---
Pre-Anesthetic Assessment Height/Weight: Height 1.6 m Weight 99.79 kg Temp Pulse Resp BP Pulse Ox 97 F L 71 18 142/73 97 09/18/21 06:11 09/18/21 06:11 09/18/21 06:11 09/18/21 06:11 09/18/21 06:11 Preop Diagnosis: diagnostic Operation Date: 09/18/21 07:00 Proposed Procedures p Colonoscopy 31091 K57.92(Not Applicable) - Josemanuel Brown MD Familial anesthetic complications: none Last intake: Intake Last Liquid Date 09/17/21 Last Liquid Time 22:30 Last Solid Date 09/16/21 Last Solid Time 21:00 Social No alcohol and No tobacco Airway Submandibular: within normal limits Cervical ROM: within normal limits Mallampati: Class III Dentition: chipped (lower front teeth) Pulmonary None reported CV/HEM None reported None reported Hepatic None reported GI Gastroesophageal Reflux Disease (controlled) Metabolic Morbid Obesity Musc/sk None reported Neuropsych None reported Anesthetic Plan ASA status: 2 Anesthesia: MAC Medications/Allergies Home Medications Medication Instructions Recorded Confirmed Last Taken Type gabapentin 100 mg capsule 100 mg PO BEDTIME 08/04/21 09/16/21 09/16/21 History tramadol 50 mg tablet 50 mg PO Q8H PRN #20 tab 08/05/21 09/16/21 09/16/21 Rx Allergies Allergy/AdvReac Type Severity Reaction Status Date / Time No Known Allergies Allergy Verified 09/16/21 13:07 Current Medications Generic Name Dose Route Start Last Admin Trade Name Freq PRN Reason Stop Dose Admin Sodium Chloride 1,000 mls @ 30 mls/hr 09/18/21 06:15 09/18/21 06:15 Sodium Chloride 0.9% IV 09/19/21 06:14 30 mls/hr .Q24H MAGUI Administration PFSH Anesthesia Medical History (Updated 08/18/21 @ 09:42 by Josemanuel Brown MD) Diverticulitis Surgical History (Updated 08/18/21 @ 09:42 by Josemanuel Brown MD) H/O tubal ligation History of dilatation and curettage History of hysterectomy Previous section Social History Smoking and tobacco status: never smoked Data Anesthesia Cardiac Studies: No Data to Display
--- NOTE | 2021-09-18 06:59 | P.HP_ITS ---
Same Day Surgery H&P Indication for Procedure/HPI DATE OF PROCEDURE: September 18, 2021 CHIEF COMPLAINT/INDICATIONFOR SURGICAL PROCEDURE: screening PREOP DIAGNOSIS: diagnostic PLANNED PROCEDURE: Operation Date: 09/18/21 07:00 Proposed Procedures p Colonoscopy 78429 K57.92(Not Applicable) - Josemanuel Brown MD Medications/Allergies* Home Medications Medication Instructions Recorded Confirmed Type gabapentin 100 mg capsule 100 mg PO BEDTIME 08/04/21 09/16/21 History Allergies/Adverse Reactions Allergy/AdvReac Type Severity Reaction Status Date / Time No Known Allergies Allergy Verified 09/16/21 13:07 Current Medications: Generic Name Dose Route Start Last Admin Trade Name Freq PRN Reason Stop Dose Admin Sodium Chloride 1,000 mls @ 30 mls/hr 09/18/21 06:15 09/18/21 06:15 Sodium Chloride 0.9% IV 09/19/21 06:14 30 mls/hr .Q24H MAGUI Administration Pertinent History/Comorbid Conditions* Medical History (Updated 08/18/21 @ 09:42 by Josemanuel Brown MD) Diverticulitis Surgical History (Updated 08/18/21 @ 09:42 by Josemanuel Brown MD) H/O tubal ligation History of dilatation and curettage History of hysterectomy Previous section Social History Smoking and tobacco status: never smoked Pertinent Exam Findings alert, oriented x 3 and regular rate & rhythm Recommendations Surgery/Procedure today Coding Level of Care Code Acute Medical Staff Assistant for Leif Alva
[2021-09-18 07:19] VITALS: BP 152/76; PULSE 71; RESP 16; TEMP 36.1; O2SAT 97
[2021-09-18 07:28] VITALS: BP 136/76; PULSE 56; RESP 18; O2SAT 98
--- NOTE | 2021-09-18 12:42 | ANE.PACU2 ---
Inpatient post-anesthesia follow up: Airway intact: Yes Vital signs: Temperature 97.0 F Pulse Rate 56 Respiratory Rate 18 Blood Pressure 136/76 Pulse Oximetry 98 Oxygen Delivery Me thod Room Air Oxygen Flow Rate 5 Fraction of Inspir ed Oxygen Hydration adequate: Yes Nausea and vomiting: No Pain level: 2 Mental status: Baseline
== END 2021-09-18 07:42 | disposition home or self-care (01) ==
PROVIDERS: PCP Family Medicine; Visit Provider Surgery
PROC: 0DJD8ZZ Inspection of Lower Intestinal Tract, Via Natural or Artificial Opening Endoscopic (ICD-10-PCS; CPT 45378; principal; 2021-09-18 07:00)
DX: Z12.11 Encounter for screening for malignant neoplasm of colon (principal); K57.30 Diverticulosis of large intestine without perforation or abscess without bleeding; K21.9 Gastro-esophageal reflux disease without esophagitis
CPT/HCPCS: 45378; J2704; J7030

== ENCOUNTER 2023-11-18 07:05 | Emergency (ER) | payer OTHER, SELFPAY ==
[2023-11-18 07:20] VITALS: BP 188/91; PULSE 73; RESP 18; TEMP 36.7; O2SAT 97; BMI 37.9
--- NOTE | 2023-11-18 07:25 | XRR_ITS ---
PROCEDURE INFORMATION: Exam: XR Left Tibia and Fibula Exam date and time: 11/18/2023 7:36 AM Age: 53 years old Clinical indication: Pain and injury or trauma; Fall; Blunt trauma; Lower leg; LeftAdditional info: Fall, leg pain TECHNIQUE: Imaging protocol: Radiologic exam of the left tibia and fibula. Views: 2 views. COMPARISON: CR XR knee LT 3V* [id number] 11/18/2023 7:33 AM FINDINGS: Bones/joints: Normal. No evidence of fracture or dislocation Soft tissues: Normal. XR/XR tibia fibula LT 2V [id number] IMPRESSION: No acute findings.
--- NOTE | 2023-11-18 07:25 | XRR_ITS ---
PROCEDURE INFORMATION: Exam: XR Left Knee Exam date and time: 11/18/2023 7:33 AM Age: 53 years old Clinical indication: Pain and injury or trauma; Fall; Blunt trauma; Knee; Left; Additional info: Fall, knee and calf pain TECHNIQUE: Imaging protocol: Radiologic exam of the left knee. Views: 3 views. COMPARISON: No relevant prior studies available. FINDINGS: Bones/joints: Normal. No evidence of fracture or dislocation Soft tissues: Normal. XR/XR knee LT 3V* [id number] IMPRESSION: No acute findings.
[2023-11-18 07:26] VITALS: RESP 18
--- NOTE | 2023-11-18 07:27 | W.ED.EXTPRO ---
HPI - Extremity Problem General: Chief complaint: Extremity Problem,Nontraumatic Stated complaint: left leg pain Time Seen by Provider: 11/18/23 07:12 History of Present Illness: Patient was at work at [employer] this morning and she tripped over a piece of carpet and fell onto her leg. She is having left calf and knee pain. She says her foot is tingling. She is very tender in her upper calf. She does still have full range of motion of her foot. No other injuries. No abdominal pain. No chest pain. No nausea or vomiting. No head injury. Review of Systems Narrative: Constitutional symptoms: Negative except as documented in HPI. Skin symptoms: Negative except as documented in HPI. Eye symptoms: Negative except as documented in HPI. ENMT symptoms: Negative except as documented in HPI. Respiratory symptoms: Negative except as documented in HPI. Cardiovascular symptoms: Negative except as documented in HPI. Gastrointestinal symptoms: Negative except as documented in HPI. Genitourinary symptoms: Negative except as documented in HPI. Musculoskeletal symptoms: Negative except as documented in HPI. Neurologic symptoms: Negative except as documented in HPI. Psychiatric symptoms: Negative except as documented in HPI. Endocrine symptoms: Negative except as documented in HPI. PFS ED PFSH: Medical History Diverticulitis Surgical History Status post colonoscopy (09/18/21) Moderate sigmoid diverticulosis History of dilatation and curettage Previous section History of hysterectomy H/O tubal ligation Social History Smoking and tobacco/nicotine status: never used tobacco/nicotine Physical Exam Narrative: EXAM NARRATIVE: General: Alert, no acute distress. Skin: warm and dry Head: Normocephalic Neck: Trachea midline Eye: Extraocular movements are intact. Ears, nose, mouth and throat: Oral mucosa moist Respiratory: Respirations are non-labored Musculoskeletal: No obvious deformity. Pain in the left upper calf region to palpation. Neurological: Alert and oriented to person, place, time, and situation, No focal neurological deficit observed. Psychiatric: Cooperative, appropriate mood & affect. Course Vital Signs: Vital signs: Vital Signs Temperature 98.1 F 11/18/23 07:20 Pulse Rate 73 11/18/23 07:20 Respiratory Rate 18 11/18/23 07:26 Blood Pressure 188/91 11/18/23 07:20 Pulse Oximetry 97 11/18/23 07:20 Oxygen Delivery Me thod Room Air 11/18/23 07:20 MDM - Extremity (Nontraumatic) Medical Decision Making X-rays ordered to rule out any fractures. X-ray of the knee and tib-fib show no acute fractures. No dislocations. Lab Data Radiology Impressions Knee X-Ray 11/18/23 07:25 IMPRESSION: No acute findings. Tibia/Fibula X-Ray 11/18/23 07:25 IMPRESSION: No acute findings. All radiology interpretation(s) finalized by discharge Other Data Assessment and plan: Calf injury - Discharged home - Discussed plan with patient. Answered any questions. - Evaluation and treatment of this problem were appropriate in the emergency setting. Discharge Plan Discharge Patient Disposition: Home Clinical Impression: Injury of calf Condition: Stable Prescriptions: New cyclobenzaprine 10 mg tablet 10 mg PO Q8H Qty: 20 0RF tramadol 50 mg tablet 50 mg PO Q8H PRN (Reason: pain) Qty: 20 0RF diclofenac sodium 50 mg tablet,delayed release (DR/EC) 50 mg PO Q12H Qty: 20 0RF No Action cyclobenzaprine 5 mg tablet 5 mg PO TID PRN (Reason: muscle psin) Qty: 20 0RF tramadol 50 mg tablet 50 mg PO Q6H PRN (Reason: pain) 7 Days Qty: 28 0RF Discharge Orders: Discharge ED (Routine); Ordered 11/18/23 Ordered By: Adrianne Torres Referrals: Zoran Berger DO [Physician] - 4-7 days (Call for appointment if pain persists) Monica Belle DO [Primary Care Provider] - (You have been screened and evaluated and felt safe for discharge. Health conditions do change or evolve sometimes and as such it is important that you follow up with your Primary Doctor to be re checked, 3-5 days is a general good time frame for follow up. You are always welcome to return to the ED for re assessment if your symptoms are worsening or you have new concerns) Discharge Diet: Usual diet Discharge Activity: Increase activity as tolerated Patient Instructions: Opioid Safety, Pain Management Coding Level of Care Code ED Manager Medicare Marketing for Leif Alva
[2023-11-18] MEDS: ketorolac 60 mg/2 mL INJ IM (07:45)
== END 2023-11-18 08:23 | disposition home or self-care (01) ==
PROVIDERS: Emergency Provider Emergency Medicine; PCP Family Medicine
DX: S89.92XA Unspecified injury of left lower leg, initial encounter (principal); W18.09XA Striking against other object with subsequent fall, initial encounter
CPT/HCPCS: 73562; 73590; 96372; 99284; J1885

== ENCOUNTER 2024-01-10 04:29 | Observation (INO) | payer OTHER, SELFPAY ==
[2024-01-10] VITALS (21 sets, daily range): BP systolic 142–214; BP diastolic 62–108; PULSE 55–78; RESP 13–18; TEMP 36.6–36.8; O2SAT 94–98; BMI 38.0; BMI 37.4
--- NOTE | 2024-01-10 04:50 | XRR_ITS ---
PROCEDURE INFORMATION: Exam: XR Chest Exam date and time: 01/10/2024 5:06 AM Age: 53 years old Clinical indication: Other: Syncope TECHNIQUE: Imaging protocol: Radiologic exam of the chest. Views: 1 view. COMPARISON: CT abdomen pelvis w con* [id number] 08/03/2021 6:36 PM FINDINGS: Lungs: Unremarkable. No consolidation. Pleural spaces: Unremarkable. No pleural effusion. No pneumothorax. Heart/Mediastinum: Unremarkable. No cardiomegaly. Bones/joints: Unremarkable. XR/XR chest 1V portable [id number] IMPRESSION: No acute findings.
--- NOTE | 2024-01-10 04:51 | ECG_ITS ---
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 Measurements Intervals [place] Rate: 60 P: 69 SD: 148 QRS: 79 QRSD: 102 T: 71 QT: 422 QTc: 423 Interpretive Statements SINUS RHYTHM INCOMPLETE RIGHT BUNDLE BRANCH BLOCK [90+ ms QRS DURATION, TERMINAL R IN V1/V2, 40+ ms S IN I/aVL/V4/V5/V6] Compared to ECG 08/03/2021 17:42:55 No significant changes Electronically Signed On 01-13-2024 13:21:45 CDT by Dontae Drew M.D. [email or web address]
--- NOTE | 2024-01-10 05:01 | CTR_ITS ---
PROCEDURE INFORMATION: Exam: CT Head Without Contrast Exam date and time: 01/10/2024 5:13 AM Age: 53 years old Clinical indication: Syncope and collapse; Additional info: Syncope fall vertigo TECHNIQUE: Imaging protocol: Computed tomography of the head without contrast. Radiation optimization: All CT scans at this facility use at least one of these dose optimization techniques: automated exposure control; mA and/or kV adjustment per patient size (includes targeted exams where dose is matched to clinical indication); or iterative reconstruction. COMPARISON: No relevant prior studies available. RADIATION DOSE METRICS: Total DLP (mGy-cm): 1067.7 FINDINGS: Brain: There is no evidence of acute parenchymal hemorrhage, extra-axial collection, or acute infarction. There is no mass effect, midline shift, or downward herniation. Cerebral ventricles: No ventriculomegaly. Paranasal sinuses: Visualized sinuses are unremarkable. No fluid levels. Mastoid air cells: Visualized mastoid air cells are well aerated. Bones: Unremarkable. No acute fracture. Soft tissues: Unremarkable. CT/CT head wo con* [id number] IMPRESSION: No acute intracranial abnormality.
[2024-01-10 05:02] LABS: Basophils # 0.1 10^3/uL (0.0-0.1); Basophils % 0.8 %; Eosinophils # 0.1 10^3/uL (0.0-0.8); Eosinophils % 0.8 %; Hematocrit 40.8 % (36-47); Lymphocytes # 2.2 10^3/uL (0.8-4.8); Lymphocytes % 33.3 %; Mean Corpuscular HGB Conc 31.6 g/dL (30-55); Mean Corpuscular Volume 91.7 fl (85-98); Mean Platelet Volume 9.5 fL (7.4-10.4); Monocytes # 0.4 10^3/uL (0.2-0.9); Monocytes % 6.4 %; Neutrophils # 3.85 10^3/uL (1.8-7.7); Neutrophils % 58.5 %; Nucleated Red Blood Cells % 0 %; Platelet Count 372 10^3/cmm (157-399); Red Blood Count 4.45 10^6/uL (3.85-5.65); Red Cell Distribution Width 11.9 % (12.1-15.1); White Blood Count 6.57 10^3/uL (3.29-11.43)
--- NOTE | 2024-01-10 05:03 | ED_ITS ---
Documented by User: Eusebio Stuart DO 01/10/24 17:52 HPI - Syncope 2 General: Chief Complaint: Syncope Stated Complaint: passed out in floor dizzy Time Seen by Provider: 01/10/24 04:30 History of Present Illness: Patient presents to the ER after passing out and falling to the floor. Patient states she was getting up and going to work as she was getting dressed she got very vertiginous in She knows she was picking herself up off the floor. She is never had this happen before. As far as the syncope goes but she does have a history of vertigo. She says this is no different than any other time as far as that goes. Patient denies any other complaints except left frontal forehead region mild pain/carpet burn and tingling in her left hand. Patient says she did take some tramadol earlier last night with the last dose around 2300 hrs. Patient does not normally take any medicine for blood pressure and says her blood pressure is usually fairly normal except when she is in pain. Review of Systems 2 General: Reports: 10 or more systems reviewed and unremarkable except in HPI and below PFSH ED 2 PFSH: Medical History Diverticulitis Diverticulitis Surgical History Status post colonoscopy (09/18/21) Moderate sigmoid diverticulosis History of dilatation and curettage Previous section History of hysterectomy H/O tubal ligation Family History (Updated 01/10/24 @ 08:44 by Charbel Robins MD) Other Stroke Social History Smoking and tobacco/nicotine status: never used tobacco/nicotine Physical Exam 2 Const: COMMON NORMALS: no acute distress, average body habitus, patient oriented x3, no limitations, healthy appearing, alert and well nourished HENMT: COMMON NORMALS: normocephalic, atraumatic, hearing grossly normal bilaterally, external ears normal, Normal external nose present and moist oral mucous membranes HEAD & SCALP: normocephalic and atraumatic NOSE: Normal external nose present EXTERNAL EAR: Yes external ears normal Eye: COMMON NORMALS: Equal, round and reactive pupils present, EOMs intact bilaterally, conjunctivae normal and no scleral icterus CONJUNCTIVA: Yes conjunctivae normal PUPIL: Yes Equal, round and reactive pupils present Neck/C-Spine: COMMON NORMALS: full ROM, no lymphadenopathy, supple, no meningeal signs, no JVD and Thyroid normal THYROID: Thyroid normal Chest: COMMONS NORMALS: normal inspection of the chest and normal palpation of entire chest wall Resp: COMMON NORMALS: normal respiratory effort, No retractions, No use of accessory muscles and clear to auscultation bilaterally AUSCULTATION: clear to auscultation bilaterally Cardio: COMMON NORMALS: no JVD, regular rate, regular rhythm, S1 normal heart sound present, S2 normal heart sound present, No gallops present (Cardio), No clicks present (Cardio), No murmurs present (Cardio) and No rub (Cardio) R ATE: regular rate RHYTHM: regular rhythm HEART SOUNDS: S1 normal heart sound present and S2 normal heart sound present GI: COMMON NORMALS: Normal to inspection, nondistended, normoactive bowel sounds present, Soft to palpation, non-tender, No hepatosplenomegaly present and no masses PALPATION: Yes Soft to palpation and Yes No hepatosplenomegaly present Neuro: COMMON NORMALS: patient oriented x3 SENSORIUM/ORIENTATION: Yes alert MENINGEAL SIGNS: Yes no meningeal signs Course 2 Vital Signs: Vital signs: Vital Signs Temperature 98 F 01/11/24 13:33 Pulse Rate 61 01/11/24 13:33 Respiratory Rate 18 01/11/24 13:33 Blood Pressure 173/90 01/11/24 13:33 Pulse Oximetry 99 01/11/24 13:33 Oxygen Delivery Me thod Room Air 01/11/24 12:00 MDM - Syncope Medical Decision Making Lab work was obtained as well as CT scan and chest x-ray, results are pending, care transferred over to Dr. Hightower at shift change, Medical Records I reviewed the patient's medical records. Lab Data I reviewed the patient's lab results. 01/11/24 04:45 01/11/24 04:45 Radiology Impressions Chest X-Ray 01/10/24 04:50 IMPRESSION: No acute findings. Head CT 01/10/24 05:01 IMPRESSION: No acute intracranial abnormality. Head/Neck CTA 01/10/24 08:30 IMPRESSION: 1. No significant cervical or intracranial carotid artery stenosis. 2. Small caliber RIGHT vertebral artery. No thrombus or dissection is apparent. This is probably a normal variant for this patient. 3. Suspect very tiny, 3 mm LEFT aneurysm near the ACOM. 4. Hypoplastic RIGHT A1 segment. 5. Unremarkable agdaagux of [place]. Head MRI 01/10/24 09:08 IMPRESSION: 1. No evidence of restricted diffusion to suggest acute ischemia. 2. Normal cerebellum. 3. Noncontrast IACs are normal in appearance. Normal trigeminal nerve root entry zones. 4. Mastoid air cells are well aerated. Paranasal sinuses are well aerated. 5. No suspicious intracranial signal abnormalities considering mild motion artifact. 6. No other acute findings. Laboratory Results WBC 6.57 10^3/uL (3.29-11.43) 01/10/24 04:56 RBC 4.45 10^6/uL (3.85-5.65) 01/10/24 04:56 Hgb 12.90 g/dL (11.27-16.99) 01/10/24 04:56 Hct 40.8 % (36-47) 01/10/24 04:56 MCV 91.7 fl (85-98) 01/10/24 04:56 MCH 29.0 pg (27-33) 01/10/24 04:56 MCHC 31.6 g/dL (30-55) 01/10/24 04:56 RDW 11.9 % (12.1-15.1) L 01/10/24 04:56 Plt Count 372 10^3/cmm (157-399) 01/10/24 04:56 MPV 9.5 fL (7.4-10.4) 01/10/24 04:56 Neut % (Auto) 58.5 % 01/10/24 04:56 Lymph % (Auto) 33.3 % 01/10/24 04:56 [place] % (Auto) 6.4 % 01/10/24 04:56 Eos % (Auto) 0.8 % 01/10/24 04:56 Baso % (Auto) 0.8 % 01/10/24 04:56 Neut # (Auto) 3.85 10^3/uL (1.8-7.7) 01/10/24 04:56 Lymph # (Auto) 2.2 10^3/uL (0.8-4.8) 01/10/24 04:56 [place] # (Auto) 0.4 10^3/uL (0.2-0.9) 01/10/24 04:56 Eos # (Auto) 0.1 10^3/uL (0.0-0.8) 01/10/24 04:56 Baso # (Auto) 0.1 10^3/uL (0.0-0.1) 01/10/24 04:56 Nucleated RBC % (auto) 0 % 01/10/24 04:56 Nucleated RBCs # 0.0 /100WBC 01/10/24 04:56 Sodium 141 mmol/L (136-145) 01/10/24 04:56 Potassium 4.5 mmol/L (3.5-5.1) 01/10/24 04:56 Chloride 103 mmol/L (98-107) 01/10/24 04:56 Carbon Dioxide 24 mmol/L (22-29) 01/10/24 04:56 Anion Gap 18.5 (5-19) 01/10/24 04:56 BUN 14 mg/dL (6-20) 01/10/24 04:56 Creatinine 0.6 mg/dL (0.5-0.9) 01/10/24 04:56 GFR Calculation 105.4 mL/min (90-130) 01/10/24 04:56 Glucose 130 mg/dL (65-115) H 01/10/24 04:56 Estimat Average Glucose 100 01/10/24 04:56 Hemoglobin A1c 5.1 % (4.0-6.0) 01/10/24 04:56 Calculated Osmolality 294 mOsm/kg (285-295) 01/10/24 04:56 Calcium 9.2 mg/dL (8.5-10.5) 01/10/24 04:56 Magnesium 1.8 mg/dL (1.7-2.3) 01/10/24 04:56 Total Bilirubin 0.2 mg/dL (0.15-1.2) 01/10/24 04:56 AST 12 U/L (0-32) 01/10/24 04:56 ALT 12 U/L (0-33) 01/10/24 04:56 Alkaline Phosphatase 81 U/L (35-105) 01/10/24 04:56 Troponin T Baseline < 6 ng/L (0-10) 01/10/24 04:56 Troponin T 120 Minute 6.00 ng/L (0-10) 01/10/24 06:22 Delta Troponin T 0.17189 ABS# (0-10) 01/10/24 06:22 Total Protein 7.1 g/dL (6.6-8.7) 01/10/24 04:56 Albumin 4.3 g/dL (3.5-5.2) 01/10/24 04:56 Globulin 2.8 g/dL (1.3-4.6) 01/10/24 04:56 TSH 2.21 uIU/mL (0.27-4.20) 01/10/24 04:56 Urine Color Yellow (Yellow) 01/10/24 04:56 Urine Appearance Clear (CLEAR) 01/10/24 04:56 Urine pH 5 (5-7) 01/10/24 04:56 Ur Specific [place] 1.005 (1.005-1.030) 01/10/24 04:56 Urine Protein Neg (Negative) 01/10/24 04:56 Urine Glucose (UA) Norm (Normal) 01/10/24 04:56 Urine Ketones Negative (Negative) 01/10/24 04:56 Urine Blood Neg (Negative) 01/10/24 04:56 Urine Nitrate Negative (Negative) 01/10/24 04:56 Urine Bilirubin Neg (Negative) 01/10/24 04:56 Urine Urobilinogen Neg mg/dL (Negative) 01/10/24 04:56 Ur Leukocyte Esterase Trace (Negative) H 01/10/24 04:56 Urine RBC None /hpf (0-2) 01/10/24 04:56 Urine WBC 0-4 /hpf (0-5) H 01/10/24 04:56 Ur Squamous Epith Cells 0-4 /hpf (0-5) H 01/10/24 04:56 Amorphous Sediment Not Reportable 01/10/24 04:56 Urine Bacteria None /hpf (NONE) 01/10/24 04:56 Urine Opiates Screen Negative ng/mL (Negative) 01/10/24 04:56 Ur Barbiturates Screen Negative ng/mL (Negative) 01/10/24 04:56 Ur Phencyclidine Scrn Negative ng/mL (Negative) 01/10/24 04:56 Ur Amphetamines Screen Negative ng/mL (Negative) 01/10/24 04:56 U Benzodiazepines Scrn Negative ng/mL (Negative) 01/10/24 04:56 Urine Cocaine Screen Negative ng/mL (Negative) 01/10/24 04:56 U Marijuana (THC) Screen Negative ng/mL (Negative) 01/10/24 04:56 All radiology interpretation(s) finalized by discharge EKG Data EKG 1: I personally reviewed and interpreted this EKG as follows: EKG interpretation date: 01/10/24 EKG interpretation time: 04:48 Interpretation: Ventricular rate 60 bpm, FL interval 148, QRS duration 102, QTc of 423, sinus rhythm Discharge Plan Discharge Patient Disposition: Admitted As Inpatient Admit Provider: Charbel Robins Clinical Impression: Syncope Condition: Stable Discharge Diet: Cardiac Discharge Activity: Increase activity as tolerated Sign Out Sign Out Data: Patient Sign Out occurred on 01/10/24 at 06:36. Patient's care was discussed, and care was transferred from Eusebio Stuart DO to Jonathan Villavicencio DO. Coding Level of Care Code ED Vocational Case Manager for Chg Fwd Documented by User: Jonathan Villavicencio DO 01/12/24 06:21 HPI - Syncope 2 General: Chief Complaint: Syncope Stated Complaint: passed out in floor dizzy Time Seen by Provider: 01/10/24 04:30 [facility] ED 2 PFSH: Medical History Diverticulitis Diverticulitis Surgical History Status post colonoscopy (09/18/21) Moderate sigmoid diverticulosis History of dilatation and curettage Previous section History of hysterectomy H/O tubal ligation Family History (Updated 01/10/24 @ 08:44 by Charbel Robins MD) Other Stroke Social History Smoking and tobacco/nicotine status: never used tobacco/nicotine Course 2 Vital Signs: Vital signs: Vital Signs Temperature 98 F 01/11/24 13:33 Pulse Rate 61 01/11/24 13:33 Respiratory Rate 18 01/11/24 13:33 Blood Pressure 173/90 01/11/24 13:33 Pulse Oximetry 99 01/11/24 13:33 Oxygen Delivery Me thod Room Air 01/11/24 12:00 MDM - Syncope Medical Decision Making Lab work was obtained as well as CT scan and chest x-ray, results are pending, care transferred over to Dr. Hightower at shift change, Care assumed at change of shift. Patient had syncopal episode at home she is not particularly orthostatic. She does have mildly elevated blood pressure no chest pain. Placed on observation for unexplained syncope discussed with hospitalist orders written Lab Data 01/11/24 04:45 01/11/24 04:45 Radiology Impressions Chest X-Ray 01/10/24 04:50 IMPRESSION: No acute findings. Head CT 01/10/24 05:01 IMPRESSION: No acute intracranial abnormality. Head/Neck CTA 01/10/24 08:30 IMPRESSION: 1. No significant cervical or intracranial carotid artery stenosis. 2. Small caliber RIGHT vertebral artery. No thrombus or dissection is apparent. This is probably a normal variant for this patient. 3. Suspect very tiny, 3 mm LEFT aneurysm near the ACOM. 4. Hypoplastic RIGHT A1 segment. 5. Unremarkable agdaagux of [place]. Head MRI 01/10/24 09:08 IMPRESSION: 1. No evidence of restricted diffusion to suggest acute ischemia. 2. Normal cerebellum. 3. Noncontrast IACs are normal in appearance. Normal trigeminal nerve root entry zones. 4. Mastoid air cells are well aerated. Paranasal sinuses are well aerated. 5. No suspicious intracranial signal abnormalities considering mild motion artifact. 6. No other acute findings. Laboratory Results WBC 6.57 10^3/uL (3.29-11.43) 01/10/24 04:56 RBC 4.45 10^6/uL (3.85-5.65) 01/10/24 04:56 Hgb 12.90 g/dL (11.27-16.99) 01/10/24 04:56 Hct 40.8 % (36-47) 01/10/24 04:56 MCV 91.7 fl (85-98) 01/10/24 04:56 MCH 29.0 pg (27-33) 01/10/24 04:56 MCHC 31.6 g/dL (30-55) 01/10/24 04:56 RDW 11.9 % (12.1-15.1) L 01/10/24 04:56 Plt Count 372 10^3/cmm (157-399) 01/10/24 04:56 MPV 9.5 fL (7.4-10.4) 01/10/24 04:56 Neut % (Auto) 58.5 % 01/10/24 04:56 Lymph % (Auto) 33.3 % 01/10/24 04:56 [place] % (Auto) 6.4 % 01/10/24 04:56 Eos % (Auto) 0.8 % 01/10/24 04:56 Baso % (Auto) 0.8 % 01/10/24 04:56 Neut # (Auto) 3.85 10^3/uL (1.8-7.7) 01/10/24 04:56 Lymph # (Auto) 2.2 10^3/uL (0.8-4.8) 01/10/24 04:56 [place] # (Auto) 0.4 10^3/uL (0.2-0.9) 01/10/24 04:56 Eos # (Auto) 0.1 10^3/uL (0.0-0.8) 01/10/24 04:56 Baso # (Auto) 0.1 10^3/uL (0.0-0.1) 01/10/24 04:56 Nucleated RBC % (auto) 0 % 01/10/24 04:56 Nucleated RBCs # 0.0 /100WBC 01/10/24 04:56 Sodium 141 mmol/L (136-145) 01/10/24 04:56 Potassium 4.5 mmol/L (3.5-5.1) 01/10/24 04:56 Chloride 103 mmol/L (98-107) 01/10/24 04:56 Carbon Dioxide 24 mmol/L (22-29) 01/10/24 04:56 Anion Gap 18.5 (5-19) 01/10/24 04:56 BUN 14 mg/dL (6-20) 01/10/24 04:56 Creatinine 0.6 mg/dL (0.5-0.9) 01/10/24 04:56 GFR Calculation 105.4 mL/min (90-130) 01/10/24 04:56 Glucose 130 mg/dL (65-115) H 01/10/24 04:56 Estimat Average Glucose 100 01/10/24 04:56 Hemoglobin A1c 5.1 % (4.0-6.0) 01/10/24 04:56 Calculated Osmolality 294 mOsm/kg (285-295) 01/10/24 04:56 Calcium 9.2 mg/dL (8.5-10.5) 01/10/24 04:56 Magnesium 1.8 mg/dL (1.7-2.3) 01/10/24 04:56 Total Bilirubin 0.2 mg/dL (0.15-1.2) 01/10/24 04:56 AST 12 U/L (0-32) 01/10/24 04:56 ALT 12 U/L (0-33) 01/10/24 04:56 Alkaline Phosphatase 81 U/L (35-105) 01/10/24 04:56 Troponin T Baseline < 6 ng/L (0-10) 01/10/24 04:56 Troponin T 120 Minute 6.00 ng/L (0-10) 01/10/24 06:22 Delta Troponin T 0.76850 ABS# (0-10) 01/10/24 06:22 Total Protein 7.1 g/dL (6.6-8.7) 01/10/24 04:56 Albumin 4.3 g/dL (3.5-5.2) 01/10/24 04:56 Globulin 2.8 g/dL (1.3-4.6) 01/10/24 04:56 TSH 2.21 uIU/mL (0.27-4.20) 01/10/24 04:56 Urine Color Yellow (Yellow) 01/10/24 04:56 Urine Appearance Clear (CLEAR) 01/10/24 04:56 Urine pH 5 (5-7) 01/10/24 04:56 Ur Specific [place] 1.005 (1.005-1.030) 01/10/24 04:56 Urine Protein Neg (Negative) 01/10/24 04:56 Urine Glucose (UA) Norm (Normal) 01/10/24 04:56 Urine Ketones Negative (Negative) 01/10/24 04:56 Urine Blood Neg (Negative) 01/10/24 04:56 Urine Nitrate Negative (Negative) 01/10/24 04:56 Urine Bilirubin Neg (Negative) 01/10/24 04:56 Urine Urobilinogen Neg mg/dL (Negative) 01/10/24 04:56 Ur Leukocyte Esterase Trace (Negative) H 01/10/24 04:56 Urine RBC None /hpf (0-2) 01/10/24 04:56 Urine WBC 0-4 /hpf (0-5) H 01/10/24 04:56 Ur Squamous Epith Cells 0-4 /hpf (0-5) H 01/10/24 04:56 Amorphous Sediment Not Reportable 01/10/24 04:56 Urine Bacteria None /hpf (NONE) 01/10/24 04:56 Urine Opiates Screen Negative ng/mL (Negative) 01/10/24 04:56 Ur Barbiturates Screen Negative ng/mL (Negative) 01/10/24 04:56 Ur Phencyclidine Scrn Negative ng/mL (Negative) 01/10/24 04:56 Ur Amphetamines Screen Negative ng/mL (Negative) 01/10/24 04:56 U Benzodiazepines Scrn Negative ng/mL (Negative) 01/10/24 04:56 Urine Cocaine Screen Negative ng/mL (Negative) 01/10/24 04:56 U Marijuana (THC) Screen Negative ng/mL (Negative) 01/10/24 04:56 Discharge Plan Discharge Patient Disposition: Admitted As Inpatient Admit Provider: Charbel Robins Clinical Impression: Syncope Condition: Stable Discharge Diet: Cardiac Discharge Activity: Increase activity as tolerated Sign Out Sign Out Data: Patient Sign Out occurred on 01/10/24 at 06:36. Patient's care was discussed, and care was transferred from Eusebio Stuart DO to Jonathan Villavicencio DO. Coding Level of Care Code ED Vocational Case Manager for Leif Alva
[2024-01-10] MEDS: hyDRALAzine 20 mg/mL INJ 1 mL IVP (05:06)
[2024-01-10 05:09] LABS: Add Urine Culture? No; Add Urine Microscopic? YES; Bilirubin Urine Neg (Negative); Blood Urine Neg (Negative); Glucose Urine UA Norm (Normal); Ketones Urine Negative (Negative); Leukocyte Esterase Urine Trace (Negative); Nitrate Urine Negative (Negative); Protein Urine Neg (Negative); Specific Gravity, Urine 1.005 (1.005-1.030); Squamous Epithelial Cell Urine 0-4 /hpf (0-5); Urine Appearance Clear (CLEAR); Urine Color Yellow (Yellow); Urobilinogen Urine Neg (Negative); WBC Urine 0-4 /hpf (0-5); pH Urine 5 (5-7)
[2024-01-10 05:13] LABS: Amphetamines Screen Urine Negative (Negative); Barbiturates Screen Urine Negative (Negative); Benzodiazepines Screen Urine Negative (Negative); Cocaine Screen Urine Negative (Negative); Opiate Screen Urine Negative (Negative); PCP Screen Urine Negative (Negative); THC Screen Urine Negative (Negative)
[2024-01-10 05:18] LABS: Alanine Aminotransferase 12 U/L (0-33); Albumin Level 4.3 g/dL (3.5-5.2); Alkaline Phosphatase 81 U/L (35-105); Anion Gap 18.5 (5-19); Aspartate Amino Transferase 12 U/L (0-32); Blood Urea Nitrogen 14 mg/dL (6-20); Calcium 9.2 mg/dL (8.5-10.5); Carbon Dioxide 24 mmol/L (22-29); Chloride 103 mmol/L (98-107); Creatinine Clr Calc Pharmacy 123.3669; Globulin 2.8 g/dL (1.3-4.6); Glomerular Filtration Rate 105.4 mL/min (90-130); Glucose 130 mg/dL (65-115); Magnesium 1.8 mg/dL (1.7-2.3); Osmolality Calculated 294 mOsm/kg (285-295); Potassium 4.5 mmol/L (3.5-5.1); Sodium 141 mmol/L (136-145); Total Bilirubin 0.2 mg/dL (0.15-1.2); Total Protein 7.1 g/dL (6.6-8.7)
[2024-01-10 05:36] LABS: Troponin(5th) Baseline < 6 ng/L (0-10)
--- NOTE | 2024-01-10 06:23 | PC.NURSE ---
pt able to ambulate to bathroom and back x2 without difficulty or assistance
[2024-01-10 06:44] LABS: Troponin 5 2HR Delta 0.00001 ABS# (0-10)
--- NOTE | 2024-01-10 06:51 | ECG_ITS ---
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 Measurements Intervals [place] Rate: 63 P: 75 MI: 134 QRS: 82 QRSD: 102 T: 71 QT: 413 QTc: 425 Interpretive Statements SINUS RHYTHM INCOMPLETE RIGHT BUNDLE BRANCH BLOCK [90+ ms QRS DURATION, TERMINAL R IN V1/V2, 40+ ms S IN I/aVL/V4/V5/V6] Compared to ECG 01/10/2024 04:48:03 No significant changes Electronically Signed On 01-13-2024 13:48:31 CDT by Dontae Drew M.D. [email or web address]
--- NOTE | 2024-01-10 08:30 | CT_ITS ---
WS: [id number] CT ANGIOGRAM CEREBRAL AND CAROTID ARTERIES HISTORY: vertigo, acute onset, possible CVA TECHNIQUE: CT angiogram is performed of the carotid and cerebral arteries. During arterial injection imaging is obtained from the skull vertex to the aortic arch in 1.25 mm imaging. Coronal and sagittal reformats are submitted. Additional multi planar reformats of the carotid and cerebral arteries are submitted, MIP imaging also reviewed. NASCET criteria utilized. [facility] CT [facility] at least one of these dose optimization techniques: automated exposure control; mA and/or kV adjust ment per patient size (includes targeted exams where dose is matched to clinical indication); or iter ative reconstruction. CONTRAST: Omnipaque 350; 100 mL IV. DLP: 538.15 mGy.cm COMPARISON: CT head 01/10/2024 Carotid Angiogram: Right carotid: Common carotid artery: Arises normally from the innominate artery. No significant plaque or stenosis. Internal carotid artery: No plaque or stenosis. External carotid artery: Patent. Left carotid: Common carotid artery: Arises normally from the aorta. No significant plaque or stenosis. Internal carotid artery: Small amount of plaque and intimal thickening at the bifurcation. External carotid artery: Patent. Right vertebral artery: Mildly hypoplastic. Patent. Left vertebral artery: Dominant. Normally arises from the LEFT subclavian. Subclavian arteries: No stenosis or significant abnormality. Upper thorax: Normal. Thyroid gland: Normal. Osseous structures: Unremarkable. CEREBRAL ANGIOGRAM: Intracranial vertebral arteries: Dominant LEFT vertebral artery. Basilar artery: No significant stenosis or occlusion. No aneurysm. Intracranial Internal carotid arteries: Demonstrates no significant stenosis or plaque. Middle cerebral arteries: Normal. Anterior cerebral arteries and ACOM: RIGHT A1 segment is small caliber but patent. This is probably n ormal variation. There is a very tiny outpouching noted near the LEFT side of the ACOM which may repr esent a tiny aneurysm measuring 3 mm. This is best seen on the MIP imaging. Posterior cerebral arteries and PCOM's: Normal. Dural venous sinuses are normally enhancing. Mastoid air cells: Normal. Paranasal sinuses: Normal. Calvarium: Normal. CT/CT angio headneck* [id number] IMPRESSION: 1. No significant cervical or intracranial carotid artery stenosis. 2. Small caliber RIGHT vertebral artery. No thrombus or dissection is apparent . This is probably a normal variant for this patient. 3. Suspect very tiny, 3 mm LEFT aneurysm near the ACOM. 4. Hypoplastic RIGHT A1 segment. 5. Unremarkable [place] of [place].
--- NOTE | 2024-01-10 08:38 | P.HP_ITS ---
Providers/Chief Complaint 2 Admitting Physician: Charbel Robins MD Primary Care Provider: Monica Belle DO Chief Complaint: passed out in floor -now dizzy n/v History of Present Illness Nita Lee is a 53 year old female presenting to the emergency department early this morning with complaints of vertigo/dizziness. She reports this morning she woke up around 2:30 AM to let the dogs out and get ready for work. She was dressed by around 250, and sat down on the couch to relax prior to going to work. After this, she cannot remember what happened. found her on the ground at 3:45 AM, and she was a little hard to wake up. After awakening her she reported she was very dizzy, and somewhat nauseous. She states she has had an episode of vertigo in the past and it seems similar. Last episode was in August and she was told she had fluid on her ears . She had not had an episode since then. She reports she has a little bit of discomfort in the lower portion of her right occiput area and believes it may be more muscular. She thinks this may be due to the pillow in the emergency department. Blood pressure was noted to be high when she came in and she has received some hydralazine. She denies any prior history of stroke. Since being at the emergency department she denies any weakness on one side, numbness or tingling in her face, and has been up to go to the bathroom at least once. She reports when she arises she gets a little dizzy, with the description being the room spins, but this fades a little bit the longer she is up. She denies any nausea or vomiting currently. No loss of bowel or bladder control. No recent illness. Has been under quite a bit of stress lately. Mother has had a stroke in the past, and she has been told she has a clotting disorder for which she is on medication for. Review of Systems 2 General: Reports: 10 or more systems reviewed and unremarkable except in HPI and below Card: Denies: chest pain Resp: Denies: dyspnea GI: Reports: nausea; Denies: abdominal pain, vomiting, hematochezia or melena Medications/Allergies Home Medications Medication Instructions Recorded Confirmed Last Taken Type tramadol 50 mg tablet 50 mg PO Q8H PRN pain #20 tabs 0401/10/24 01/09/24 Rx Allergies Allergy/AdvReac Type Severity Reaction Status Date / Time No Known Allergies Allergy Verified 10/29/23 10:49 PFSH Acute 2 PFSH: Medical History Diverticulitis Diverticulitis Surgical History Status post colonoscopy (09/18/21) Moderate sigmoid diverticulosis History of dilatation and curettage Previous section History of hysterectomy H/O tubal ligation Family History (Updated 01/10/24 @ 08:44 by Charbel Robins MD) Other Stroke Social History Smoking and tobacco/nicotine status: never used tobacco/nicotine Other PFSH information: Supplemental PFSH Information: Reports mother with history of CVA, and clotting disorder. Vitals/I&O/Wt Last Vital Signs Temp 97.9 F 01/10/24 04:33 Pulse 69 01/10/24 07:43 Resp 14 01/10/24 07:00 BP 181/78 01/10/24 07:43 Pulse Ox 95 01/10/24 07:30 Weight last 48 hrs Weight 97.522 kg Physical Exam 2 Narrative: General exam is a white female, reporting a little bit of posterior head pain. Bedside swallow exam demonstrates no aspiration HEENT: Atraumatic normocephalic. Oropharynx is clear. Neck is supple no lymphadenopathy thyromegaly Cardiovascular regular rate and rhythm without murmur Lungs clear Abdomen is soft obese nontender with positive bowel sounds exams deferred Extremities no cyanosis clubbing or edema, cap refill brisk Skin no rash Neuro: No obvious cerebellar signs currently. No nystagmus. EOMs intact. NIH stroke scale 0. Cranial nerves II through XII grossly intact. Data 01/10/24 04:56 01/10/24 04:56 Other Labs: CT head, which I reviewed negative EKG normal sinus rhythm, normal axis, normal EKG Chest x-ray which I reviewed no infiltrate Magnesium, LFTs, troponin, albumin and calcium all normal. I have checked a TSH was is normal Urinalysis negative Urine drug screen negative A&P Assessment and plan (1) Dizziness: Earlier this morning, patient was found down presumably with a syncopal episode. She initially reported to her significant dizziness/vertigo with nausea. She had trouble standing. She also had pain in the back of her head. She has a past history of vertigo treated and according to the patient resolved after September. Family history is significant for mother with CVA, and some type of clotting disorder. She currently has an NIHSS score of 0. She has no swallowing difficulty on bedside swallow exam, and is able to ambulate to the bathroom with minimal feelings of dizziness. She has no nystagmus, and no visual field defects. There is no indication based on her NIHSS score for intervention should thrombus be noted on CTA. However, this will delineate vasculature well and likely exclude any significant fracture as there is concern of fall and syncope. She is not a candidate for tPA/TNKase. At this point differential diagnosis includes CVA, posterior circulation versus inner ear etiology. Aspirin 325 mg p.o. now Check lipid profile and hemoglobin A1c CTA head and neck MRI without contrast, special attention auditory canals Permissive hypertension initially until concern of stroke is further delineated. Hydration Statin 40 mg at bedtime, Lipitor Lovenox for DVT prophylaxis Telemetry Echocardiogram PT and OT consults. Speech therapy consult is not needed based on exam. (2) Syncope: Telemetry Check echo See above (3) Hypertension: Blood pressure is elevated. As stroke is being entertained as possible etiology will allow permissive hypertension currently until this is further delineated. Plan Other medical problems as a delineated in her past medical history Full code currently Lovenox for DVT prophylaxis Attestations 2 Medical Necessity Statement*: Will need less than 2 midnight stay for evaluation and treatment of severe dizziness, syncope. Diagnoses Dizziness R42 Syncope R55 Hypertension I10 Time Spent (min) 63
[2024-01-10 08:41] LABS: Thyroid Stimulating Hormone 2.21 uIU/mL (0.27-4.20)
[2024-01-10] MEDS: iohexol 350 mg/mL 500 mL Btl (per mL) IV (09:03)
[2024-01-10] MEDS: aspirin 325 mg EC Tablet PO (09:07)
--- NOTE | 2024-01-10 09:08 | USCV_ITS ---
Nita Lee Age: 53 Gender: F : 1970 Exam Date: 01/10/2024 10:32 Ordering Phys: Charbel Robins MD Technologist: [place] [facility] [place] [facility] [place]: syncope BP: 142 / 105 HR: 68 Rhythm: Sinus Technical Quality: Adequate MEASUREMENTS (Male / Female) Normal Values 2D ECHO LVOT Diameter 2.2 cm LV Ejection Fraction MOD 2C 52.5 % LV Ejection Fraction 2C AL 53.5 % LA Diameter 3.7 cm RA Systolic Volume 4C AL 53.8 ml RA Systolic Volume 4C MOD 52.1 ml LA Sys Volume AL 49.1 cm cubed LA Sys Volume Index AL 23.0 cm cubed/m squared Aorta at Sinotubular Diameter 2.2 cm IVC Diameter 2.0 cm M-MODE LA Ao Ratio MM 1.6 AV Cusp Separation MM 1.9 cm DOPPLER AV Peak Velocity 114.0 cm/s LVOT Peak Velocity 99.0 cm/s AV Area Cont Eq vti 3.6 cm squared AV Area Cont Eq pk 3.3 cm squared MV Peak Velocity 87.0 cm/s MV Area PHT 2.8 cm squared Mitral E to A Ratio 1.3 TV Peak Velocity 139.5 cm/s TR Peak Velocity 149.0 cm/s TR Peak Gradient 8.9 mmHg TV Peak E Velocity 79.0 cm/s Right Atrial Pressure 3.0 mmHg Pulmonary Artery Systolic Pressu 11.9 mmHg PV Peak Velocity 107.5 cm/s FINDINGS Left Ventricle Normal left ventricular size, systolic function and wall thickness, with no regional wall motion abnormalities. Left ventricular ejection fraction is estimated at 60 %. Normal diastolic filling pattern. Right Ventricle The right ventricle is normal in size and function. Right Atrium The right atrium is normal in size. Left Atrium The left atrium is normal in size. Mitral Valve Structurally normal mitral valve without significant stenosis or prolapse. There is no mitral regurgitation. Aortic Valve Structurally normal aortic valve without significant sclerosis or stenosis. There is no aortic regurgitation. Tricuspid Valve Structurally normal tricuspid valve without significant stenosis or regurgitation. Pulmonary artery systolic pressure is normal. Pulmonic Valve Structurally normal pulmonic valve without significant stenosis. There is no pulmonic regurgitation. Pericardium Normal pericardium without effusion. Aorta Normal ascending aorta dimension. IVC The inferior vena cava appears normal. CONCLUSIONS 1-Normal left ventricular size, systolic function and wall thickness, with no regional wall motion abnormalities. Left ventricular ejection fraction is estimated at 60 %. Normal diastolic filling pattern. 2-There is no pericardial effusion. 3-No significant valve abnormalities. 4-There are no prior echocardiogram studies to compare. Kayleigh Weston MD (Electronically Signed) Final Date: 10 January 2024 21:01 S
--- NOTE | 2024-01-10 09:08 | MR_ITS ---
WS: [id number] MRI HEAD WITHOUT CONTRAST TECHNIQUE: Sagittal T1, T2 axial, T2 axial FLAIR, axial and coronal T1 images, axial susceptibility w eighted imaging, axial diffusion weighted images, and coronal T2 images were obtained. CLINICAL INFORMATION: Dizziness, syncope COMPARISON: None. FINDINGS: No evidence of restricted diffusion to suggest acute ischemia. Ventricular system basilar cisterns ar e patent. No suspicious intracranial signal abnormalities considering mild motion artifact. Normal po sterior fossa. Normal vascular flow voids at the skull base. No extra-axial fluid collections. No cleopatra dence of mass or mass effect. Paranasal sinuses and mastoid air cells are well aerated. Normal optic chiasm and pituitary infundibulum. Partially visualized few prominent upper cervical chain lymph node s likely reactive. Normal posterior nasopharynx. Proximal 7th and 8th cranial nerves are normal in appearance. Normal tr igeminal nerve root entry zones. Gadolinium not administered. MR/MR head wo con* [id number] IMPRESSION: 1. No evidence of restricted diffusion to suggest acute ischemia. 2. Normal cerebellum. 3. Noncontrast IACs are normal in appearance. Normal trigeminal nerve root ent ry zones. 4. Mastoid air cells are well aerated. Paranasal sinuses are well aerated. 5. No suspicious intracranial signal abnormalities considering mild motion art ifact. 6. No other acute findings.
[2024-01-10 09:11] LABS: Estmated Average Glucose 100; Hemoglobin A1C 5.1 % (4.0-6.0)
[2024-01-10] MEDS: sodium chloride 0.9% 1,000 ML 100 ML IV ×2 (09:42→20:34)
[2024-01-10] MEDS: enoxaparin 40 mg/0.4 mL Syringe SUBCUT (09:42)
--- NOTE | 2024-01-10 11:15 | ECG_ITS ---
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 Measurements Intervals [place] Rate: 56 P: 48 VA: 145 QRS: 50 QRSD: 105 T: 33 QT: 442 QTc: 427 Interpretive Statements SINUS BRADYCARDIA INCOMPLETE RIGHT BUNDLE BRANCH BLOCK [90+ ms QRS DURATION, TERMINAL R IN V1/V2, 40+ ms S IN I/aVL/V4/V5/V6] Compared to ECG 01/10/2024 08:30:48 Sinus rhythm no longer present Electronically Signed On 01-13-2024 13:48:59 CDT by Dontae Drew M.D. [id number]
[2024-01-10 11:16] LABS: Troponin 5 6HR Delta 0.00001 ng/L (0-12)
[2024-01-10] MEDS: acetaminophen 325 mg Tablet 650 MG PO ×2 (13:21→20:34)
[2024-01-10] MEDS: amlodipine 5 mg Tablet PO (16:54)
[2024-01-10] MEDS: atorvastatin 40 mg Tablet PO (20:34)
[2024-01-11] VITALS (8 sets, daily range): BP systolic 137–184; BP diastolic 50–90; PULSE 61–74; RESP 16–18; TEMP 36.6–37; O2SAT 97–99
[2024-01-11 05:26] LABS: Basophils % 0.7 %; Eosinophils # 0.1 10^3/uL (0.0-0.8); Eosinophils % 1.3 %; Hematocrit 37.1 % (36-47); Lymphocytes # 2.3 10^3/uL (0.8-4.8); Lymphocytes % 38.1 %; Mean Corpuscular HGB Conc 31.5 g/dL (30-55); Mean Corpuscular Hemoglobin 29.1 pg (27-33); Mean Corpuscular Volume 92.3 fl (85-98); Mean Platelet Volume 9.6 fL (7.4-10.4); Monocytes # 0.4 10^3/uL (0.2-0.9); Monocytes % 6.7 %; Neutrophils # 3.25 10^3/uL (1.8-7.7); Neutrophils % 52.9 %; Nucleated Red Blood Cells % 0 %; Platelet Count 346 10^3/cmm (157-399); Red Blood Count 4.02 10^6/uL (3.85-5.65); Red Cell Distribution Width 12.2 % (12.1-15.1); White Blood Count 6.14 10^3/uL (3.29-11.43)
[2024-01-11 05:46] LABS: Chol HDL Ratio 3.26 mg/dL (0.0-4.40); Cholesterol 163 mg/dL (0-200); HDL Cholesterol 50 mg/dL (60-100); LDL Cholesterol Calculated 94 mg/dL (50-129); LDL HDL Ratio 1.88 RATIO (0.00-3.22); Triglycerides 96 mg/dL (0-150)
[2024-01-11 05:47] LABS: Alanine Aminotransferase 10 U/L (0-33); Albumin Level 3.8 g/dL (3.5-5.2); Alkaline Phosphatase 69 U/L (35-105); Anion Gap 14.3 (5-19); Aspartate Amino Transferase 10 U/L (0-32); Blood Urea Nitrogen 9 mg/dL (6-20); Calcium 8.6 mg/dL (8.5-10.5); Carbon Dioxide 25 mmol/L (22-29); Chloride 107 mmol/L (98-107); Globulin 2.6 g/dL (1.3-4.6); Glomerular Filtration Rate 130.1 mL/min (90-130); Glucose 119 mg/dL (65-115); Magnesium 1.8 mg/dL (1.7-2.3); Osmolality Calculated 294 mOsm/kg (285-295); Potassium 4.3 mmol/L (3.5-5.1); Sodium 142 mmol/L (136-145); Total Bilirubin 0.3 mg/dL (0.15-1.2); Total Protein 6.4 g/dL (6.6-8.7)
--- NOTE | 2024-01-11 07:16 | PC.OT ---
OT EVALUATION ORDERS RECEIVED. PER PT; NO NEED FOR OT AT THIS TIME.
--- NOTE | 2024-01-11 08:35 | P.DS_ITS ---
Discharge Providers Date of Admission: 01/10/24 09:05 Date of Discharge: January 11, 2024 Attending Provider at Admission: Charbel Robins MD Attending Provider at Discharge: Charbel Robins MD Primary Care Provider: Monica Belle DO Diagnoses at Discharge Discharge Diagnosis (1) Dizziness: Status: Acute (2) Syncope: Status: Acute (3) Hypertension: Status: Acute Reason for Visit Reason for Visit: passed out in floor -now dizzy n/v Hospital Course Hospital Course Nita presented to the hospital with severe dizziness upon awakening. There was a worry that she had a syncopal event. She had history of significant vertigo in the past. Secondary to this there was concern of stroke. Vital signs were all normal with the exception of blood pressure which was high. She had no tachycardia or hypoxia. CT noncontrast head no acute findings. CTA no large vessel occlusion or flow-limiting stenosis. She was placed in observation, and an MRI was obtained which ultimately showed no ischemia. She was given fluids, and many of her symptoms resolved. She still had a little bit of dizziness when moving her head quickly, thought to be secondary to inner ear pathology which she had had in the past. She was discharged on Norvasc 5 mg a day secondary to hypertension. She will follow-up with her primary care provider in 3 to 5 days. Her and her were able to ask questions and agreed with the plan. No arrhythmias were detected on EKG or telemetry. Physical Exam Narrative: General exam no distress Neck is supple Cardiovascular regular in rhythm without murmur Lungs clear Abdomen soft Extremities no cyanosis clubbing or edema. Discharge Data Studies Completed and Pending Completed Studies During Hospitalization Category Date Time Status CT head wo con* [id number] Stat Cat Scan 01/10/24 05:01 Completed CTA head neck [CT angio headneck* [id number]] Stat Cat Scan 01/10/24 08:30 Completed XR chest 1V portable [id number] Stat Exams 01/10/24 04:50 Completed MR head wo con* [id number] Routine MRI 01/10/24 09:08 Completed CV. echo complete* [id number] Routine Ultrasound 01/10/24 09:08 Completed Radiology Impressions Chest X-Ray 01/10/24 04:50 IMPRESSION: No acute findings. Head CT 01/10/24 05:01 IMPRESSION: No acute intracranial abnormality. Head/Neck CTA 01/10/24 08:30 IMPRESSION: 1. No significant cervical or intracranial carotid artery stenosis. 2. Small caliber RIGHT vertebral artery. No thrombus or dissection is apparent. This is probably a normal variant for this patient. 3. Suspect very tiny, 3 mm LEFT aneurysm near the ACOM. 4. Hypoplastic RIGHT A1 segment. 5. Unremarkable table [place] Head MRI 01/10/24 09:08 IMPRESSION: 1. No evidence of restricted diffusion to suggest acute ischemia. 2. Normal cerebellum. 3. Noncontrast IACs are normal in appearance. Normal trigeminal nerve root entry zones. 4. Mastoid air cells are well aerated. Paranasal sinuses are well aerated. 5. No suspicious intracranial signal abnormalities considering mild motion artifact. 6. No other acute findings. Laboratory Results WBC 6.14 10^3/uL (3.29-11.43) 01/11/24 04:45 RBC 4.02 10^6/uL (3.85-5.65) 01/11/24 04:45 Hgb 11.70 g/dL (11.27-16.99) 01/11/24 04:45 Hct 37.1 % (36-47) 01/11/24 04:45 MCV 92.3 fl (85-98) 01/11/24 04:45 MCH 29.1 pg (27-33) 01/11/24 04:45 MCHC 31.5 g/dL (30-55) 01/11/24 04:45 RDW 12.2 % (12.1-15.1) 01/11/24 04:45 Plt Count 346 10^3/cmm (157-399) 01/11/24 04:45 MPV 9.6 fL (7.4-10.4) 01/11/24 04:45 Neut % (Auto) 52.9 % 01/11/24 04:45 Lymph % (Auto) 38.1 % 01/11/24 04:45 [place] % (Auto) 6.7 % 01/11/24 04:45 Eos % (Auto) 1.3 % 01/11/24 04:45 Baso % (Auto) 0.7 % 01/11/24 04:45 Neut # (Auto) 3.25 10^3/uL (1.8-7.7) 01/11/24 04:45 Lymph # (Auto) 2.3 10^3/uL (0.8-4.8) 01/11/24 04:45 [place] # (Auto) 0.4 10^3/uL (0.2-0.9) 01/11/24 04:45 Eos # (Auto) 0.1 10^3/uL (0.0-0.8) 01/11/24 04:45 Baso # (Auto) 0.0 10^3/uL (0.0-0.1) 01/11/24 04:45 Nucleated RBC % (auto) 0 % 01/11/24 04:45 Nucleated RBCs # 0.0 /100WBC 01/11/24 04:45 Sodium 142 mmol/L (136-145) 01/11/24 04:45 Potassium 4.3 mmol/L (3.5-5.1) 01/11/24 04:45 Chloride 107 mmol/L (98-107) 01/11/24 04:45 Carbon Dioxide 25 mmol/L (22-29) 01/11/24 04:45 Anion Gap 14.3 (5-19) 01/11/24 04:45 BUN 9 mg/dL (6-20) 01/11/24 04:45 Creatinine 0.5 mg/dL (0.5-0.9) 01/11/24 04:45 GFR Calculation 130.1 mL/min (90-130) H 01/11/24 04:45 Glucose 119 mg/dL (65-115) H 01/11/24 04:45 Estimat Average Glucose 100 01/10/24 04:56 Hemoglobin A1c 5.1 % (4.0-6.0) 01/10/24 04:56 Calculated Osmolality 294 mOsm/kg (285-295) 01/11/24 04:45 Calcium 8.6 mg/dL (8.5-10.5) 01/11/24 04:45 Magnesium 1.8 mg/dL (1.7-2.3) 01/11/24 04:45 Total Bilirubin 0.3 mg/dL (0.15-1.2) 01/11/24 04:45 AST 10 U/L (0-32) 01/11/24 04:45 ALT 10 U/L (0-33) 01/11/24 04:45 Alkaline Phosphatase 69 U/L (35-105) 01/11/24 04:45 Troponin T Baseline < 6 ng/L (0-10) 01/10/24 04:56 Troponin T 120 Minute 6.00 ng/L (0-10) 01/10/24 06:22 Delta Troponin T 0.70546 ABS# (0-10) 01/10/24 06:22 Troponin T Hi Sens 6Hr 6.00 ng/L (0-10) 01/10/24 10:54 Troponin T Hi Sens 6Hr Delta 0.41985 ng/L (0-12) 01/10/24 10:54 Total Protein 6.4 g/dL (6.6-8.7) L 01/11/24 04:45 Albumin 3.8 g/dL (3.5-5.2) 01/11/24 04:45 Globulin 2.6 g/dL (1.3-4.6) 01/11/24 04:45 Triglycerides 96 mg/dL (0-150) 01/11/24 04:45 Cholesterol 163 mg/dL (0-200) 01/11/24 04:45 LDL Cholesterol, Calc 94 mg/dL (50-129) 01/11/24 04:45 HDL Cholesterol 50 mg/dL (60-100) L 01/11/24 04:45 LDL/HDL Ratio 1.88 RATIO (0.00-3.22) 01/11/24 04:45 Cholesterol/HDL Ratio 3.26 mg/dL (0.0-4.40) 01/11/24 04:45 TSH 2.21 uIU/mL (0.27-4.20) 01/10/24 04:56 Urine Color Yellow (Yellow) 01/10/24 04:56 Urine Appearance Clear (CLEAR) 01/10/24 04:56 Urine pH 5 (5-7) 01/10/24 04:56 Ur Specific Chaun[place] 1.005 (1.005-1.030) 01/10/24 04:56 Urine Protein Neg (Negative) 01/10/24 04:56 Urine Glucose (UA) Norm (Normal) 01/10/24 04:56 Urine Ketones Negative (Negative) 01/10/24 04:56 Urine Blood Neg (Negative) 01/10/24 04:56 Urine Nitrate Negative (Negative) 01/10/24 04:56 Urine Bilirubin Neg (Negative) 01/10/24 04:56 Urine Urobilinogen Neg mg/dL (Negative) 01/10/24 04:56 Ur Leukocyte Esterase Trace (Negative) H 01/10/24 04:56 Urine RBC None /hpf (0-2) 01/10/24 04:56 Urine WBC 0-4 /hpf (0-5) H 01/10/24 04:56 Ur Squamous Epith Cells 0-4 /hpf (0-5) H 01/10/24 04:56 Amorphous Sediment Not Reportable 01/10/24 04:56 Urine Bacteria None /hpf (NONE) 01/10/24 04:56 Urine Opiates Screen Negative ng/mL (Negative) 01/10/24 04:56 Ur Barbiturates Screen Negative ng/mL (Negative) 01/10/24 04:56 Ur Phencyclidine Scrn Negative ng/mL (Negative) 01/10/24 04:56 Ur Amphetamines Screen Negative ng/mL (Negative) 01/10/24 04:56 U Benzodiazepines Scrn Negative ng/mL (Negative) 01/10/24 04:56 Urine Cocaine Screen Negative ng/mL (Negative) 01/10/24 04:56 U Marijuana (THC) Screen Negative ng/mL (Negative) 01/10/24 04:56 Vitals Last Vital Signs Temp 98.1 F 01/11/24 08:33 Pulse 69 01/11/24 08:33 Resp 17 01/11/24 08:33 BP 184/81 01/11/24 08:33 Pulse Ox 98 01/11/24 08:33 O2 Del Method Room Air 01/11/24 08:33 Discharge Plan Discharge Patient Disposition: Home Condition: Stable Prescriptions: New amlodipine 5 mg Tablet 5 mg PO DAILY Qty: 30 0RF Continued tramadol 50 mg tablet 50 mg PO Q8H PRN (Reason: pain) Qty: 20 0RF Discharge Orders: Discharge Order (Routine); Ordered 01/11/24 Ordered By: Charbel Robins Referrals: Monica Belle DO [Primary Care Provider] - 4-7 days Discharge Diet: Cardiac Discharge Activity: Increase activity as tolerated Patient Instructions: Opioid Safety Activity Restrictions/Additional Instructions: No medicines as prescribed Follow-up with Dr. García in 3 to 5 days Off work this week, Dr. Belle will determine if okay to return next week Return for any concerns Discharge Attestations Time Spent in Discharge Care*: greater than 30 min Status at Discharge: Cognitive status at discharge: cognitively intact , Behavioral status at discharge: cooperative , Quality Metrics Clinical Quality Measures [ No reported AMI, CVA or VTE this stay] Coding Level of Care Code 88898 Total time (in minutes) for Discharge: 33 Diagnoses Dizziness R42 Syncope R55 Hypertension I10
[2024-01-11] MEDS: aspirin 325 mg Tablet PO (08:50)
[2024-01-11] MEDS: amlodipine 5 mg Tablet PO (08:50)
[2024-01-11] MEDS: enoxaparin 40 mg/0.4 mL Syringe SUBCUT (08:50)
--- NOTE | 2024-01-11 13:31 | PC.NURSE ---
Discussed discharge with patient and family. Discussed follow up appointment, new medications and taking blood pressure, writing down and taking to follow up appointment with patient. Verbalized understanding
== END 2024-01-11 11:30 | disposition home or self-care (01) ==
LOC: ER 06:56 → MEDSURG 17:45 → ER IP 01-11 07:31 → MEDSURG 01-11 07:31
PROVIDERS: Emergency Medicine; Admitting Provider Internal Medicine; Emergency Provider Family Medicine; PCP Family Medicine; Visit Provider Internal Medicine
DX: R42 Dizziness and giddiness (principal); R55 Syncope and collapse; I10 Essential (primary) hypertension; Z73.3 Stress, not elsewhere classified; Z82.3 Family history of stroke
CPT/HCPCS: 36415; 70450; 70496; 70498; 70551; 71045; 80053; 80061; 80306; 81001; 83036; 83735; 84443; 84484; 85025; 92523; 92610; 93005; 93306; 96361; 96372; 96374; 97161; 97530; 99285; G0378; J0360; J1650; J7030; Q9967

== ENCOUNTER 2024-10-08 14:33 | Outpatient (CLI) | payer OTHER, SELFPAY ==
--- NOTE | 2024-10-08 14:35 | MM_ITS ---
WS: [id number] BILATERAL 3D TOMOSYNTHESIS DIGITAL SCREENING MAMMOGRAPHY WITH CAD CLINICAL INFORMATION: SCREENING HISTORY: Screening mammogram. No current complaints. COMPARISON: Baseline TECHNIQUE: Bilateral CC and MLO views. FINDINGS: Scattered fibroglandular densities bilaterally. No suspicious focal mass, asymmetry, calcifications, or architectural distortion. No evidence of malignancy. 8 mm lobulated ovoid nodule outer LEFT breast likely an intramammary lymph node but technically indeterminate. This could be further evaluated with ultrasound. No comparisons available. MM/MM [facility] tomosynthesis [id number] IMPRESSION: DENSITY: There are scattered areas of fibroglandular density. BI-RADS: 0 - Incomplete: Need additional imaging evaluation. FOLLOW UP: Need Additional Imaging Recommend ultrasound lateral LEFT breast
== END 2024-10-08 14:34 | disposition home or self-care (01) ==
PROVIDERS: PCP Family Medicine
DX: Z12.31 Encounter for screening mammogram for malignant neoplasm of breast (principal); R92.323 Mammographic fibroglandular density, bilateral breasts; N63.20 Unspecified lump in the left breast, unspecified quadrant
CPT/HCPCS: 77063; 77067

== ENCOUNTER 2024-11-12 14:53 | Outpatient (CLI) | payer OTHER, SELFPAY ==
--- NOTE | 2024-11-12 16:25 | US_ITS ---
WS: [id number] ULTRASOUND BREAST LEFT TECHNIQUE: Ultrasound left breast focused area of concern. CLINICAL INFORMATION: abnormal mammo COMPARISON: 10/08/2024 FINDINGS: Ultrasound LEFT breast 2 to 4 o'clock position. Lobulated ovoid nodule that corresponds to the mammographic findings. Evidence of a central fatty hilum on the cine imaging. This is most compatible with a small intramammary lymph node. No other suspicious findings. US/US breast LT limited* [id number] IMPRESSION: BI-RADS 2 benign Recommend return to annual screening mammography.
== END 2024-11-12 14:54 | disposition home or self-care (01) ==
PROVIDERS: PCP Family Medicine
DX: R92.8 Other abnormal and inconclusive findings on diagnostic imaging of breast (principal); N63.25 Unspecified lump in the left breast, overlapping quadrants
CPT/HCPCS: 76642